=== PATIENT | male | born 1965 | race American Indian/Alaskan Native ===

== ENCOUNTER 2022-06-18 13:28 | Inpatient (IN) | payer MEDICAID ==
[2022-06-18] MEDS ORDERED: SODIUM CHLORIDE 0.9% 1000 ML 1,000 ML IV ONE (14:41)
[2022-06-18] MEDS ORDERED: METOCLOPRAMIDE 10 MG/2 ML INJ IV ONE (14:42)
[2022-06-18] MEDS ORDERED: fentaNYL 100 MCG/2 ML INJ IV ONE (15:35)
--- NOTE | 2022-06-18 15:35 | XRay Report ---
CHEST 1 VIEW 06/18/2022 3:15 PM INDICATION / CLINICAL INFORMATION: Altered Mental Status. COMPARISON: None available. FINDINGS: SUPPORT DEVICES: None. HEART / MEDIASTINUM: No significant abnormality. LUNGS / PLEURA: No significant pulmonary abnormality. No significant pleural effusion. No pneumothora x. ADDITIONAL FINDINGS: No significant additional findings. IMPRESSION: 1. No acute abnormality of the chest. Signer Name: Antonoi Harmon MD Signed: 06/18/2022 3:31 PM Workstation Name: [email or web address]
[2022-06-18 15:45] LABS: INR 0.97 (0.87-1.13)
[2022-06-18 15:51] LABS: Basophils % (Auto) 0.6 % (0.0-1.8); Eosinophils % (Auto) 0.3 % (0.0-4.3); Lymphocytes # (Auto) 1.1 K/mm3 (1.2-5.4); Lymphocytes % (Auto) 22.5 % (13.4-35.0); Mean Corpuscular HGB Conc 33 % (32-34); Mean Corpuscular Volume 98 fl (84-94); Monocytes # (Auto) 0.2 K/mm3 (0.0-0.8); Monocytes % (Auto) 3.6 % (0.0-7.3); Platelet Count 271 K/mm3 (140-440); Red Cell Distribution Width 15.3 % (13.2-15.2)
[2022-06-18 15:56] LABS: Alanine Aminotransferase 16 units/L (7-56); Albumin 4.2 g/dL (3.9-5); BUN/Creatinine Ratio 14; Blood Urea Nitrogen 22 mg/dL (9-20); Hemolysis Index 5
[2022-06-18] MEDS ORDERED: INSULIN REGULAR, HUMAN 100 UNITS in SODIUM CHLORIDE 0.9% 99 ML IV SCH ×2 (17:00→18:00)
[2022-06-18 17:07] LABS: Bacteria,Urine 1+ /HPF (Negative); Mucus,Urine FEW /HPF
[2022-06-18] MEDS ORDERED: ALBUTEROL 2.5 MG/3 ML NEBU IH PRN (17:08)
[2022-06-18] MEDS ORDERED: ACETAMINOPHEN 325 MG TAB PO PRN (17:08)
[2022-06-18] MEDS ORDERED: oxyCODONE /ACETAMINOPHEN 5-325MG TAB PO PRN (17:08)
[2022-06-18] MEDS ORDERED: SODIUM BICARB 8.4% 50 MEQ/50 ML SYRINGE IV SCH (17:11)
--- NOTE | 2022-06-18 17:11 | History and Physical Report ---
History of Present Illness Chief complaint: My blood sugar is high History of present illness: 57 YO Male with DM, HTN presents ED for evaluation. Patient reports "my blood sugar is high". Patient states that he has experienced nausea, abdominal discomfort, diminished oral intake over the past 1 day with persistent symptoms over the same timeframe. Patient checks his blood glucose and found that it was above 500. EMS was notified and upon arrival the patient was found to be in distress and subsequent transported to [facility] for further care and evaluation of the aforementioned symptoms. The patient was seen and evaluated in the emergency department. All lab and imaging studies reviewed. Patient found to have diabetic ketoacidosis, metabolic acidosis, acute kidney injury, volume depletion as well as malnutrition. Patient admitted to ICU due to increased risk of worsening symptoms and for medical stabilization. Patient initiated on DKA protocol. Critical care team consulted in ED. Patient denies fever, chills, chest pain, palpitation, productive cough, skin rash and recent contact, no exposure to COVID-19. No prior admission for review. No medication listed at time of admission for reconciliation. Advanced care planning conducted in ED. Past History Past Medical History: diabetes, hypertension Past Surgical History: No surgical history, Other (Reviewed) Social history: single. denies: smoking, alcohol abuse, prescription drug abuse Family history: diabetes, hypertension Medications and Allergies Allergies Allergy/AdvReac Type Severity Reaction Status Date / Time acetaminophen [From Tylenol] AdvReac Unknown Verified 06/18/22 13:33 Active Meds: Active Medications Insulin Human Regular 100 (units/ Sodium Chloride) 100 mls @ 1 mls/hr IV TITR LUKSA; Protocol Last Admin: 06/18/22 16:54 Dose: 8 units/hr, 8 mls/hr Sodium Chloride (Sodium Chloride 0.9% 10 Ml Flush Syringe) 10 ml IV BID LUKAS Sodium Chloride (Sodium Chloride 0.9% 10 Ml Flush Syringe) 10 ml IV PRN PRN PRN Reason: LINE FLUSH Review of Systems Constitutional: weakness, no weight loss, no weight gain, no fever, no chills Ears, nose, mouth and throat: no ear pain, no decreased hearing, no nose pain, no sinus pressure Cardiovascular: no chest pain, no palpitations, no edema, no syncope Respiratory: no cough, no excessive sputum, no shortness of breath Gastrointestinal: nausea, no diarrhea, no constipation, no change in bowel habits, no hematemesis Genitourinary Male: no hematuria, no flank pain, no urinary frequency, no urinary hesitancy, no nocturia Rectal: no pain, no bleeding Musculoskeletal: no neck stiffness, no shooting arm pain, no arm numbness/tingling, no shooting leg pain Integumentary: no rash, no sores, no boils, no blisters Neurological: no head injury, no weakness, no tingling, no seizures, no tremors Psychiatric: no anxiety, no sleep disturbances, no hypersomnia, no change in appetite, no suicidal ideation Endocrine: excessive thirst, polyuria, no cold intolerance, no heat intolerance, no nocturia, no excessive sweating, no flushing Hematologic/Lymphatic: no easy bruising Allergic/Immunologic: no urticaria, no allergic rhinitis, no wheezing Exam - Constitutional Vitals: Temp Pulse Resp BP Pulse Ox 97.6 F 108 H 14 105/55 98 06/18/22 13:31 06/18/22 17:01 06/18/22 17:01 06/18/22 17:01 06/18/22 17:01 General appearance: Present: mild distress - EENT Eyes: Present: PERRL ENT: hearing intact, clear oral mucosa - Neck Neck: Present: supple, normal ROM - Respiratory Respiratory effort: normal Respiratory: bilateral: CTA - Cardiovascular Heart Sounds: Present: S1 & S2. Absent: rub, click - Extremities Extremities: pulses symmetrical, No edema Peripheral Pulses: within normal limits - Abdominal General gastrointestinal: Present: soft, non-tender, non-distended, normal bowel sounds Male genitourinary: Present: normal - Integumentary Integumentary: Present: clear, warm, dry - Musculoskeletal Musculoskeletal: gait normal, strength equal bilaterally - Psychiatric Psychiatric: appropriate mood/affect, intact judgment & insight - Neurologic Neurologic: CNII-XII intact, moves all extremities HEART Score - HEART Score Troponin: Troponin T < 0.010 ng/mL (0.00-0.029) 06/18/22 14:59 Results - Labs CBC & Chem 7: 06/18/22 15:40 06/18/22 14:59 Labs: Abnormal lab results 06/18/22 06/18/22 06/18/22 Range/Units 14:59 14:59 14:59 MCV (84-94) fl RDW (13.2-15.2) % Lymph # (Auto) (1.2-5.4) K/mm3 Seg Neutrophils % (40.0-70.0) % Sodium 132 L (137-145) mmol/L Potassium 6.7 H* (3.6-5.0) mmol/L Chloride 92.0 L (98-107) mmol/L Carbon Dioxide 13 L (22-30) mmol/L BUN 22 H (9-20) mg/dL Creatinine 1.6 H (0.8-1.3) mg/dL Glucose 738 H* (75-100) mg/dL POC Glucose (70-105) mg/dL Lactic Acid 2.40 H* (0.7-2.0) mmol/L Alkaline Phosphatase 135 H (35-129) units/L Salicylates < 0.3 L (2.8-20.0) mg/dL Acetaminophen (10.0-30.0) ug/mL 06/18/22 06/18/22 06/18/22 Range/Units 14:59 15:26 15:40 MCV 98 H (84-94) fl RDW 15.3 H (13.2-15.2) % Lymph # (Auto) 1.1 L (1.2-5.4) K/mm3 Seg Neutrophils % 73.0 H (40.0-70.0) % Sodium (137-145) mmol/L Potassium (3.6-5.0) mmol/L Chloride (98-107) mmol/L Carbon Dioxide (22-30) mmol/L BUN (9-20) mg/dL Creatinine (0.8-1.3) mg/dL Glucose (75-100) mg/dL POC Glucose > 600 H (70-105) mg/dL Lactic Acid (0.7-2.0) mmol/L Alkaline Phosphatase (35-129) units/L Salicylates (2.8-20.0) mg/dL Acetaminophen 5.0 L (10.0-30.0) ug/mL Assessment and Plan - Patient Problems (1) DKA (diabetic ketoacidosis) Current Visit: No Status: Acute Qualifiers: Diabetes mellitus type: type 1 Plan to address problem: DKA protocol: Insulin drip, IV fluid resuscitation therapy, serial BMP, monitor anion gap, monitor urine output every shift, potassium repletion as per protocol The high probability of a clinically significant, sudden or life threatening deterioration of the [endocrine, renal] system(s) required my full and direct attention, intervention and personal management. The aggregate critical care time was [65] minutes. This time is in addition to time spent performing reported procedures but includes the following: [x] Data Review and interpretation [x] Patient assessment and monitoring of vital signs [x] Documentation [x] Medication orders and management (2) Acidosis, metabolic Current Visit: Yes Status: Acute Plan to address problem: IV fluid resuscitation therapy, BMP, repeat BMP in a.m., IV bicarbonate therapy (3) Volume depletion Current Visit: Yes Status: Acute Plan to address problem: IV fluid resuscitation therapy monitor urine output every shift, monitor fluid balance. (4) MARÍA (acute kidney injury) Current Visit: Yes Status: Acute Plan to address problem: IV fluid resuscitation therapy, monitor urine output every shift, repeat BMP in a.m. to monitor serum creatinine as well as GFR. (5) Malnutrition Current Visit: Yes Status: Acute Qualifiers: Protein-calorie malnutrition severity: mild Plan to address problem: Increase protein intake, dietary supplementation (6) DVT prophylaxis Current Visit: Yes Status: Acute Plan to address problem: SCD to bilateral lower extremities while in bed (7) Advance care planning Current Visit: Yes Status: Acute Plan to address problem: Disease education done, care plan discussed, diagnoses discussed, prognosis discussed, patient acknowledges understanding and agreement with care plan, +30 minutes. (8) Preventative health care Current Visit: Yes Status: Acute Plan to address problem: Patient counseled regarding carbohydrate counting, balanced diet, outpatient follow-up with primary care physician for all age and risk factor appropriate screening test. +30 minutes.
--- NOTE | 2022-06-18 17:12 | Emergency Department Report ---
ED General Adult HPI - General Chief complaint: Hyperglycemia Stated complaint: ABD PAIN/HYPERGLYCEMIA PUI?: No Time Seen by Provider: 06/18/22 14:38 Source: patient Mode of arrival: Stretcher Limitations: No Limitations - History of Present Illness Initial comments: PT ARRIVING FROM HOME, REPORTS ABD PAIN. DENIES NVD. BGL 572 -: Gradual, days(s) Location: abdomen Severity scale (0 -10): 8 Quality: aching Consistency: intermittent Improves with: none Worsens with: none Associated Symptoms: denies: denies other symptoms, confusion, chest pain, cough - Related Data Allergies Allergy/AdvReac Type Severity Reaction Status Date / Time acetaminophen [From Tylenol] AdvReac Unknown Verified 06/18/22 13:33 ED Review of Systems ROS: Stated complaint: ABD PAIN/HYPERGLYCEMIA Other details as noted in HPI Constitutional: denies: chills, fever Eyes: denies: eye pain, eye discharge, vision change ENT: denies: ear pain, throat pain Respiratory: denies: cough, shortness of breath, wheezing Cardiovascular: denies: chest pain, palpitations Endocrine: no symptoms reported Gastrointestinal: denies: abdominal pain, nausea, diarrhea Genitourinary: denies: urgency, dysuria Musculoskeletal: denies: back pain, joint swelling, arthralgia Skin: denies: rash, lesions Neurological: denies: headache, weakness, paresthesias Psychiatric: denies: anxiety, depression Hematological/Lymphatic: denies: easy bleeding, easy bruising ED Past Medical Hx - Past Medical History Hx Hypertension: Yes Hx Diabetes: Yes ED Physical Exam - General Limitations: No Limitations General appearance: alert, in distress - Head Head exam: Present: atraumatic, normocephalic - Eye Eye exam: Present: normal appearance - ENT ENT exam: Present: mucous membranes moist - Neck Neck exam: Present: normal inspection - Respiratory Respiratory exam: Present: normal lung sounds bilaterally. Absent: respiratory distress - Cardiovascular Cardiovascular Exam: Present: regular rate, normal rhythm. Absent: systolic murmur, diastolic murmur, rubs, gallop - GI/Abdominal GI/Abdominal exam: Present: tenderness, normal bowel sounds - Rectal Rectal exam: Present: deferred - Extremities Exam Extremities exam: Present: normal inspection - Back Exam Back exam: Present: normal inspection - Neurological Exam Neurological exam: Present: alert, oriented X3 - Psychiatric Psychiatric exam: Present: normal affect, normal mood - Skin Skin exam: Present: warm, dry, intact, normal color. Absent: rash ED Course Vital Signs 06/18/22 06/18/22 06/18/22 13:31 15:43 15:45 Temperature 97.6 F Pulse Rate 70 85 104 H Respiratory 16 18 11 L Rate Blood Pressure 139/76 Blood Pressure 134/83 134/62 [Left] O2 Sat by Pulse 98 99 100 Oximetry 06/18/22 06/18/22 06/18/22 16:01 16:15 16:31 Temperature Pulse Rate 106 H 106 H 113 H Respiratory 10 L 15 18 Rate Blood Pressure 119/78 112/58 105/55 Blood Pressure [Left] O2 Sat by Pulse 99 100 100 Oximetry 06/18/22 17:01 Temperature Pulse Rate 108 H Respiratory 14 Rate Blood Pressure 105/55 Blood Pressure [Left] O2 Sat by Pulse 98 Oximetry ED Medical Decision Making - Lab Data Result diagrams: 06/18/22 15:40 06/18/22 14:59 - EKG Data -: EKG Interpreted by Me EKG shows normal: sinus rhythm - Medical Decision Making work up showed hyperglycemia ktosis and acodisos and gap, fluids insulin bolus and drip Critical care attestation.: If time is entered above; I have spent that time in minutes in the direct care of this critically ill patient, excluding procedure time. ED Disposition Clinical Impression: DKA (diabetic ketoacidosis) Disposition: ADMITTED INPATIENT Is pt being admited?: Yes Does the pt Need Aspirin: No Condition: Critical Instructions: Diabetic Ketoacidosis (ED)
[2022-06-18] MEDS ORDERED: SODIUM CHLORIDE 0.9% 1000 ML 1,000 ML IV SCH (17:15)
[2022-06-18 17:18] LABS: Amphetamine Screen,Urine PRESUMPTIVE NEGATIVE; Benzodiazepines Screen,Urine PRESUMPTIVE NEGATIVE; Cannabinoid Screen,Urine PRESUMPTIVE NEGATIVE; Cocaine Screen,Urine PRESUMPTIVE NEGATIVE; Methadone Screen,Urine PRESUMPTIVE NEGATIVE; Opiate Screen,Urine PRESUMPTIVE NEGATIVE
[2022-06-18 17:22] LABS: Bilirubin,Urine Negative (Negative); Blood,Urine Negative (Negative); Color,Urine Yellow (Yellow); Protein,Urine <15 mg/dL mg/dL (Negative)
[2022-06-18 17:42] LABS: ABG Base Excess -17.2 mmol/L (-2.0-3.0); ABG HCO3 9.4 mmol/L (20.0-26.0); ABG Methemoglobin 0.6 % (0.0-1.5); ABG Oxygen Saturation 98.1 % (95.0-99.0); ABG PCO2 25.3 mm Hg; ABG PO2 125.4 mm Hg (80.0-90.0)
[2022-06-18 17:57] LABS: ABG PH 7.189 pH Units (7.350-7.450)
[2022-06-18 18:49] LABS: Calcium 8.7 mg/dL (8.4-10.2)
[2022-06-18] MEDS: HYDROmorphone 0.5 MG/0.5 ML INJ IV PRN (20:33)
[2022-06-18] MEDS ORDERED: SODIUM CHLORIDE 0.9% 500 ML 500 ML IV ONE (21:09)
[2022-06-18] MEDS ORDERED: SODIUM CHLORIDE 0.9% 500 ML 500 ML ONE (21:10)
[2022-06-18] MEDS ORDERED: D5W/0.45% NACL 1,000 ML IV SCH (22:00)
[2022-06-18 23:17] LABS: Calcium 9.5 mg/dL (8.4-10.2)
[2022-06-18] MEDS: D5W/0.45% NACL/KCL 20 MEQ 20 MEQ/1,000 ML BAG IV SCH (23:46)
[2022-06-19] MEDS: HYDROmorphone 0.5 MG/0.5 ML INJ IV PRN ×3 (00:07→21:41)
[2022-06-19 01:27] LABS: Calcium 9.2 mg/dL (8.4-10.2)
[2022-06-19 05:24] LABS: BUN/Creatinine Ratio 14; Blood Urea Nitrogen 20 mg/dL (9-20); Calcium 8.9 mg/dL (8.4-10.2); Hemolysis Index 12
[2022-06-19] MEDS ORDERED: IBUPROFEN 400 MG TAB PO ONE (06:00)
[2022-06-19] MEDS: D5W/0.45% NACL/KCL 20 MEQ 20 MEQ/1,000 ML BAG IV SCH (07:47)
[2022-06-19 09:55] LABS: BUN/Creatinine Ratio 13; Blood Urea Nitrogen 17 mg/dL (9-20); Calcium 8.8 mg/dL (8.4-10.2); Hemolysis Index 5
[2022-06-19] MEDS ORDERED: FAMOTIDINE 20 MG/2 ML INJ IV SCH (10:00)
--- NOTE | 2022-06-19 10:21 | Progress Note ---
<ARVIND BRAUN - Last Filed: 06/19/22 17:47> Assessment and Plan Assessment and plan: This is a 57-year-old male with known past medical history of HTN, IDDM, and hypothyroidism admitted for DKA Hospital Course to Date: 06/19: Patient remains on DKA protocol, anion gap closed this am. Patient still complaining of severe persistent abdominal pain. Per patient, patient has been constant since admit with no improvement. Orders placed for CT abd/pelvis. Depends on CT result will most likely transition to SubQ insulin today. Continue IVF resuscitation and insulin gtt per DKA protocol. CCM is also following. Assessment and Plan #DKA (Diabetic Ketoacidosis) #Anion Gap Metabolic Acidosis #Insulin Dependent Diabetes Mellitus(IDDM) - Presented with high BG, nausea, and abdominal pain - DKA protocol was initiated - HgbA1C pending - Anion gap closed and BG improved - Awaiting CT result, will probably transition to SubQ insulin later on today - Monitor and replace electrolytes as needed - Monitor anion gap, serial Labs ordered - CCM consulted #Persistent Abdominal Pain - Unclear etiology - Per patient, abdominal pain is unchanged since admit - Patient remains on DKA protocol, Anion gap closed and BG improved - Patient describe pain as persistent, cramp-like, diffuse pain. Abdomen is soft but tender to touch. Patient denied any N/V, no diarrhea or bloating. - CT abd/pelvis ordered - PRN Analgesia for pain control - PRN antiemetic for N/V - Continue current IVF resuscitation #Acute Kidney Injury(MARÍA) most like Vasomotor Nephropathy #Volume Depletion #Metabolic Acidosis - Baseline renal function is unknown - Presented with Scr. as high as 1.8, most likely 2/2 to DKA/hypovolemia/Dehyd ration - Renal function improved post IVF hydration - Continue IV fluid resuscitation per DKA protocol - Strict intake and output - Avoid nephrotoxic medications - Monitor and replace electrolytes as needed - Trend BMP and Lactic acid #Hypertension - BP stable - Resume home meds once meds list is available - Continue blood pressure monitor per protocol - Maintain SBP greater than 160 #Hypothyroidism - resume home Synthroid #GI/DVT Prophylaxis - PPI- Pepcid - SCD to bilateral lower extremities while in bed #Advance Care Planning - Disease education data, care plan, diagnoses, and prognosis were discussed with patient at the bedside. Patient is a FULL code. Patient acknowledged understanding and agreement with current care plan. The high probability of a clinically significant, sudden or life threatening deterioration of the [GI, Endo, ] system(s) required my full and direct attention, intervention and personal management. The aggregate critical care time was [60] minutes. This time is in addition to time spent performing reported procedures but includes the following: [x] Data Review and interpretation [x] Patient assessment and monitoring of vital signs [x] Documentation [x] Medication orders and management Disposition Plan: ICU Total Time Spent with Patient (Minutes): 60 History Interval history: Patient seen and examined at the bedside. Fully AAO, on RA. Complaining of severe persistent abdominal pain. Patient describe pain as persistent, cramp- like, diffuse pain. Abdomen is soft but tender to touch. Patient denied any N/V, no diarrhea or bloating. Patient remains on the DKA protocol, VSS. Hospitalist Physical - Constitutional Vitals: Temp Pulse Resp BP Pulse Ox 98 F 82 9 L 132/78 98 06/19/22 10:00 06/19/22 10:01 06/19/22 10:01 06/19/22 10:01 06/19/22 10:01 General appearance: Present: mild distress, well-nourished - EENT Eyes: Present: PERRL, EOM intact ENT: hearing intact - Neck Neck: Present: normal ROM - Respiratory Respiratory effort: normal Respiratory: bilateral: diminished - Cardiovascular Rhythm: regular Heart Sounds: Present: S1 & S2 - Extremities Extremities: no ischemia, pulses intact, pulses symmetrical Peripheral Pulses: within normal limits - Abdominal General gastrointestinal: soft, tender, non-distended, normal bowel sounds - Integumentary Integumentary: Present: clear, warm, dry - Psychiatric Psychiatric: appropriate mood/affect, cooperative - Neurologic Neurologic: CNII-XII intact, moves all extremities - Allied Health Allied health notes reviewed: nursing HEART Score - HEART Score Troponin: Troponin T < 0.010 ng/mL (0.00-0.029) 06/18/22 14:59 Results - Labs CBC & Chem 7: 06/18/22 15:40 06/19/22 09:21 Labs: Laboratory Last Values WBC 4.8 K/mm3 (4.5-11.0) 06/18/22 15:40 RBC 4.10 M/mm3 (3.65-5.03) 06/18/22 15:40 Hgb 13.0 gm/dl (11.8-15.2) 06/18/22 15:40 Hct 40.0 % (35.5-45.6) 06/18/22 15:40 MCV 98 fl (84-94) H 06/18/22 15:40 MCH 32 pg (28-32) 06/18/22 15:40 MCHC 33 % (32-34) 06/18/22 15:40 RDW 15.3 % (13.2-15.2) H 06/18/22 15:40 Plt Count 271 K/mm3 (140-440) 06/18/22 15:40 Lymph % (Auto) 22.5 % (13.4-35.0) 06/18/22 15:40 [place] % (Auto) 3.6 % (0.0-7.3) 06/18/22 15:40 Eos % (Auto) 0.3 % (0.0-4.3) 06/18/22 15:40 Baso % (Auto) 0.6 % (0.0-1.8) 06/18/22 15:40 Lymph # (Auto) 1.1 K/mm3 (1.2-5.4) L 06/18/22 15:40 [place] # (Auto) 0.2 K/mm3 (0.0-0.8) 06/18/22 15:40 Eos # (Auto) 0.0 K/mm3 (0.0-0.4) 06/18/22 15:40 Baso # (Auto) 0.0 K/mm3 (0.0-0.1) 06/18/22 15:40 Seg Neutrophils % 73.0 % (40.0-70.0) H 06/18/22 15:40 Seg Neutrophils # 3.5 K/mm3 (1.8-7.7) 06/18/22 15:40 PT 13.9 Sec. (12.2-14.9) 06/18/22 14:59 INR 0.97 (0.87-1.13) 06/18/22 14:59 ABG pH 7.189 pH Units (7.350-7.450) L* 06/18/22 16:47 ABG pCO2 25.3 mm Hg 06/18/22 16:47 ABG pO2 125.4 mm Hg (80.0-90.0) H 06/18/22 16:47 ABG HCO3 9.4 mmol/L (20.0-26.0) L 06/18/22 16:47 ABG O2 Saturation 98.1 % (95.0-99.0) 06/18/22 16:47 ABG O2 Content 16.6 (0.0-44) 06/18/22 16:47 ABG Base Excess -17.2 mmol/L (-2.0-3.0) L 06/18/22 16:47 ABG Hemoglobin 12.1 gm/dl (14.0-18.0) L 06/18/22 16:47 ABG Carboxyhemoglobin 1.5 % (0.0-5.0) 06/18/22 16:47 ABG Methemoglobin 0.6 % (0.0-1.5) 06/18/22 16:47 Oxyhemoglobin 96.1 % (95.0-99.0) 06/18/22 16:47 FiO2 21 % 06/18/22 16:47 Sodium 146 mmol/L (137-145) H 06/19/22 09:21 Potassium 4.2 mmol/L (3.6-5.0) 06/19/22 09:21 Chloride 111.0 mmol/L (98-107) H 06/19/22 09:21 Carbon Dioxide 22 mmol/L (22-30) 06/19/22 09:21 Anion Gap 17 mmol/L 06/19/22 09:21 BUN 17 mg/dL (9-20) 06/19/22 09:21 Creatinine 1.3 mg/dL (0.8-1.3) 06/19/22 09:21 Estimated GFR > 60 ml/min 06/19/22 09:21 BUN/Creatinine Ratio 13 % 06/19/22 09:21 Glucose 132 mg/dL (75-100) H 06/19/22 09:21 POC Glucose 121 mg/dL (70-105) H 06/19/22 09:35 Ketones Quantitative Large (Negative) 06/18/22 14:59 Lactic Acid 3.20 mmol/L (0.7-2.0) H* 06/19/22 09:21 Calcium 8.8 mg/dL (8.4-10.2) 06/19/22 09:21 Phosphorus 2.70 mg/dL (2.5-4.5) D 06/19/22 09:21 Magnesium 2.30 mg/dL (1.7-2.3) 06/19/22 09:21 Total Bilirubin 0.50 mg/dL (0.1-1.2) 06/18/22 14:59 AST 24 units/L (5-40) 06/18/22 14:59 ALT 16 units/L (7-56) 06/18/22 14:59 Alkaline Phosphatase 135 units/L (35-129) H 06/18/22 14:59 Total Creatine Kinase 93 units/L (55-170) 06/18/22 14:59 Total Creatine Kinase 98 units/L (55-170) 06/18/22 14:59 Troponin T < 0.010 ng/mL (0.00-0.029) 06/18/22 14:59 C-Reactive Protein 0.30 mg/dL (0.00-1.30) 06/18/22 14:59 NT-Pro-B Natriuret Pep 304.5 pg/mL (0-900) 06/18/22 14:59 Total Protein 6.9 g/dL (6.3-8.2) 06/18/22 14:59 Albumin 4.2 g/dL (3.9-5) 06/18/22 14:59 Albumin/Globulin Ratio 1.6 % 06/18/22 14:59 Urine Color Yellow (Yellow) 06/18/22 15:43 Urine Turbidity Clear (Clear) 06/18/22 15:43 Urine pH 5.0 (5.0-7.0) 06/18/22 15:43 Ur Specific [place] 1.010 (1.003-1.030) 06/18/22 15:43 Urine Protein <15 mg/dl mg/dL (Negative) 06/18/22 15:43 Urine Glucose (UA) Negative mg/dL (Negative) 06/18/22 15:43 Urine Ketones 1 mg/dL (Negative) 06/18/22 15:43 Urine Blood Negative (Negative) 06/18/22 15:43 Urine Nitrite Negative (Negative) 06/18/22 15:43 Ur Reducing Substances Not Reportable 06/18/22 15:43 Urine Bilirubin Negative (Negative) 06/18/22 15:43 Urine Ictotest Not Reportable 06/18/22 15:43 Urine Urobilinogen 2.0 mg/dL (<2.0) 06/18/22 15:43 Ur Leukocyte Esterase 1.0 (Negative) 06/18/22 15:43 Urine WBC (Auto) 48.0 /HPF (0.0-6.0) H 06/18/22 15:43 Urine RBC (Auto) 14.0 /HPF (0.0-6.0) 06/18/22 15:43 U Epithel Cells (Auto) 6.0 /HPF (0-13.0) 06/18/22 15:43 Urine Bacteria (Auto) 1+ /HPF (Negative) 06/18/22 15:43 Urine Mucus Few /HPF 06/18/22 15:43 Urine Yeast (Budding) 2+ /HPF 06/18/22 15:43 Salicylates < 0.3 mg/dL (2.8-20.0) L 06/18/22 14:59 Urine Opiates Screen Presumptive negative 06/18/22 15:43 Urine Methadone Screen Presumptive negative 06/18/22 15:43 Acetaminophen 5.0 ug/mL (10.0-30.0) L 06/18/22 14:59 Ur Barbiturates Screen Presumptive negative 06/18/22 15:43 Ur Phencyclidine Scrn Presumptive negative 06/18/22 15:43 Ur Amphetamines Screen Presumptive negative 06/18/22 15:43 U Benzodiazepines Scrn Presumptive negative 06/18/22 15:43 Urine Cocaine Screen Presumptive negative 06/18/22 15:43 U Marijuana (THC) Screen Presumptive negative 06/18/22 15:43 Drugs of Abuse Note Disclamer 06/18/22 15:43 Plasma/Serum Alcohol < 0.01 % (0-0.07) 06/18/22 14:59 Hou/IV: Voiding Method Urinal Active Medications - Current Medications Current Medications: Generic Name Dose Route Start Last Admin Trade Name Freq PRN Reason Stop Dose Admin Albuterol 2.5 mg 06/18/22 17:08 Albuterol 2.5 Mg/3 Ml Nebu IH Q3HRT PRN Shortness Of Breath Famotidine 20 mg 06/19/22 10:00 Famotidine 20 Mg/2 Ml Inj IV 06/19/22 20:00 QDAY LUKAS Famotidine 20 mg 06/20/22 10:00 Famotidine 20 Mg Tab PO QDAY LUKAS Hydromorphone HCl 0.5 mg 06/18/22 17:08 06/19/22 00:07 Hydromorphone 0.5 Mg/0.5 Ml Inj IV 0.5 mg Q13H PRN Administration Pain , Severe (7-10) Insulin Human Regular 100 100 mls @ 1 mls/hr 06/18/22 17:00 06/19/22 09:25 units/ Sodium Chloride IV 0.5 units/hr TITR LUKAS 0.5 mls/hr Titration Protocol 1 UNITS/HR Potassium Chloride/Dextrose/Sod Cl 20 meq in 1,000 mls @ 125 mls/hr 06/19/22 00:00 06/19/22 06:58 D5w/0.45% Nacl/Kcl 20 Meq IV 125 mls/hr DIRECT LUKAS Infusion Lactated Ringer's 1,000 mls @ 999 mls/hr 06/19/22 11:00 Lactated Ringers IV 06/19/22 12:00 BOLUS ONE Sodium Chloride 10 ml 06/18/22 22:00 06/18/22 23:52 Sodium Chloride 0.9% 10 Ml Flush Syringe IV 10 ml BID LUKAS Administration Sodium Chloride 10 ml 06/18/22 17:08 Sodium Chloride 0.9% 10 Ml Flush Syringe IV PRN PRN LINE FLUSH <URIEL BRANDON - Last Filed: 06/20/22 07:13> Assessment and Plan Assessment and plan: I saw and evaluated the patient. I agree with the findings and the plan of care as documented in the Nurse Practitioner's~note, with the following corrections and additions. Hospitalist Physical - Constitutional Vitals: Temp Pulse Resp BP Pulse Ox 97.7 F 97 H 11 L 114/85 100 06/20/22 07:07 06/20/22 00:41 06/20/22 00:41 06/20/22 00:41 06/20/22 00:41 HEART Score - HEART Score Troponin: Troponin T < 0.010 ng/mL (0.00-0.029) 06/18/22 14:59 Results - Labs CBC & Chem 7: 06/20/22 04:06 06/20/22 04:06 Labs: Laboratory Last Values WBC 3.9 K/mm3 (4.5-11.0) L 06/20/22 04:06 RBC 3.42 M/mm3 (3.65-5.03) L 06/20/22 04:06 Hgb 10.8 gm/dl (11.8-15.2) L 06/20/22 04:06 Hct 32.1 % (35.5-45.6) L D 06/20/22 04:06 MCV 94 fl (84-94) 06/20/22 04:06 MCH 32 pg (28-32) 06/20/22 04:06 MCHC 34 % (32-34) 06/20/22 04:06 RDW 15.5 % (13.2-15.2) H 06/20/22 04:06 Plt Count 223 K/mm3 (140-440) 06/20/22 04:06 Lymph % (Auto) 22.5 % (13.4-35.0) 06/18/22 15:40 [place] % (Auto) 3.6 % (0.0-7.3) 06/18/22 15:40 Eos % (Auto) 0.3 % (0.0-4.3) 06/18/22 15:40 Baso % (Auto) 0.6 % (0.0-1.8) 06/18/22 15:40 Lymph # (Auto) 1.1 K/mm3 (1.2-5.4) L 06/18/22 15:40 [place] # (Auto) 0.2 K/mm3 (0.0-0.8) 06/18/22 15:40 Eos # (Auto) 0.0 K/mm3 (0.0-0.4) 06/18/22 15:40 Baso # (Auto) 0.0 K/mm3 (0.0-0.1) 06/18/22 15:40 Seg Neutrophils % 73.0 % (40.0-70.0) H 06/18/22 15:40 Seg Neutrophils # 3.5 K/mm3 (1.8-7.7) 06/18/22 15:40 PT 13.9 Sec. (12.2-14.9) 06/18/22 14:59 INR 0.97 (0.87-1.13) 06/18/22 14:59 ABG pH 7.189 pH Units (7.350-7.450) L* 06/18/22 16:47 ABG pCO2 25.3 mm Hg 06/18/22 16:47 ABG pO2 125.4 mm Hg (80.0-90.0) H 06/18/22 16:47 ABG HCO3 9.4 mmol/L (20.0-26.0) L 06/18/22 16:47 ABG O2 Saturation 98.1 % (95.0-99.0) 06/18/22 16:47 ABG O2 Content 16.6 (0.0-44) 06/18/22 16:47 ABG Base Excess -17.2 mmol/L (-2.0-3.0) L 06/18/22 16:47 ABG Hemoglobin 12.1 gm/dl (14.0-18.0) L 06/18/22 16:47 ABG Carboxyhemoglobin 1.5 % (0.0-5.0) 06/18/22 16:47 ABG Methemoglobin 0.6 % (0.0-1.5) 06/18/22 16:47 Oxyhemoglobin 96.1 % (95.0-99.0) 06/18/22 16:47 FiO2 21 % 06/18/22 16:47 Sodium 145 mmol/L (137-145) 06/20/22 04:06 Potassium 3.8 mmol/L (3.6-5.0) 06/20/22 04:06 Chloride 110.3 mmol/L (98-107) H 06/20/22 04:06 Carbon Dioxide 25 mmol/L (22-30) 06/20/22 04:06 Anion Gap 14 mmol/L 06/20/22 04:06 BUN 8 mg/dL (9-20) L 06/20/22 04:06 Creatinine 1.1 mg/dL (0.8-1.3) 06/20/22 04:06 Estimated GFR > 60 ml/min 06/20/22 04:06 BUN/Creatinine Ratio 7 % 06/20/22 04:06 Glucose 91 mg/dL (75-100) 06/20/22 04:06 POC Glucose 107 mg/dL (70-105) H 06/19/22 21:43 Hemoglobin A1c 10.7 % (4-6) H 06/20/22 04:06 Ketones Quantitative Large (Negative) 06/18/22 14:59 Lactic Acid 1.40 mmol/L (0.7-2.0) 06/19/22 15:47 Calcium 8.6 mg/dL (8.4-10.2) 06/20/22 04:06 Phosphorus 2.80 mg/dL (2.5-4.5) 06/20/22 04:06 Magnesium 1.90 mg/dL (1.7-2.3) 06/20/22 04:06 Total Bilirubin 0.40 mg/dL (0.1-1.2) 06/20/22 04:06 Direct Bilirubin < 0.2 mg/dL (0-0.2) 06/20/22 04:06 AST 24 units/L (5-40) 06/20/22 04:06 ALT 15 units/L (7-56) 06/20/22 04:06 Alkaline Phosphatase 100 units/L (35-129) 06/20/22 04:06 Total Creatine Kinase 93 units/L (55-170) 06/18/22 14:59 Total Creatine Kinase 98 units/L (55-170) 06/18/22 14:59 Troponin T < 0.010 ng/mL (0.00-0.029) 06/18/22 14:59 C-Reactive Protein 0.30 mg/dL (0.00-1.30) 06/18/22 14:59 NT-Pro-B Natriuret Pep 304.5 pg/mL (0-900) 06/18/22 14:59 Total Protein 5.7 g/dL (6.3-8.2) L 06/20/22 04:06 Albumin 3.4 g/dL (3.9-5) L 06/20/22 04:06 Albumin/Globulin Ratio 1.5 % 06/20/22 04:06 Triglycerides 192 mg/dL (2-149) H 06/20/22 04:06 Amylase 180 units/L (27-131) H 06/20/22 04:06 Lipase 249 units/L (13-60) H 06/20/22 04:06 Urine Color Yellow (Yellow) 06/18/22 15:43 Urine Turbidity Clear (Clear) 06/18/22 15:43 Urine pH 5.0 (5.0-7.0) 06/18/22 15:43 Ur Specific [place] 1.010 (1.003-1.030) 06/18/22 15:43 Urine Protein <15 mg/dl mg/dL (Negative) 06/18/22 15:43 Urine Glucose (UA) Negative mg/dL (Negative) 06/18/22 15:43 Urine Ketones 1 mg/dL (Negative) 06/18/22 15:43 Urine Blood Negative (Negative) 06/18/22 15:43 Urine Nitrite Negative (Negative) 06/18/22 15:43 Ur Reducing Substances Not Reportable 06/18/22 15:43 Urine Bilirubin Negative (Negative) 06/18/22 15:43 Urine Ictotest Not Reportable 06/18/22 15:43 Urine Urobilinogen 2.0 mg/dL (<2.0) 06/18/22 15:43 Ur Leukocyte Esterase 1.0 (Negative) 06/18/22 15:43 Urine WBC (Auto) 48.0 /HPF (0.0-6.0) H 06/18/22 15:43 Urine RBC (Auto) 14.0 /HPF (0.0-6.0) 06/18/22 15:43 U Epithel Cells (Auto) 6.0 /HPF (0-13.0) 06/18/22 15:43 Urine Bacteria (Auto) 1+ /HPF (Negative) 06/18/22 15:43 Urine Mucus Few /HPF 06/18/22 15:43 Urine Yeast (Budding) 2+ /HPF 06/18/22 15:43 Salicylates < 0.3 mg/dL (2.8-20.0) L 06/18/22 14:59 Urine Opiates Screen Presumptive negative 06/18/22 15:43 Urine Methadone Screen Presumptive negative 06/18/22 15:43 Acetaminophen 5.0 ug/mL (10.0-30.0) L 06/18/22 14:59 Ur Barbiturates Screen Presumptive negative 06/18/22 15:43 Ur Phencyclidine Scrn Presumptive negative 06/18/22 15:43 Ur Amphetamines Screen Presumptive negative 06/18/22 15:43 U Benzodiazepines Scrn Presumptive negative 06/18/22 15:43 Urine Cocaine Screen Presumptive negative 06/18/22 15:43 U Marijuana (THC) Screen Presumptive negative 06/18/22 15:43 Drugs of Abuse Note Disclamer 06/18/22 15:43 Plasma/Serum Alcohol < 0.01 % (0-0.07) 06/18/22 14:59 Hou/IV: Voiding Method Urinal Active Medications - Current Medications Current Medications: Generic Name Dose Route Start Last Admin Trade Name Freq PRN Reason Stop Dose Admin Albuterol 2.5 mg 06/18/22 17:08 Albuterol 2.5 Mg/3 Ml Nebu IH Q3HRT PRN Shortness Of Breath Amitriptyline HCl 75 mg 06/20/22 10:00 Amitriptyline 25 Mg Tab PO QDAY LUKAS Aspirin 325 mg 06/20/22 10:00 Aspirin 325 Mg Tab PO QDAY LUKAS Dextrose 50 ml 06/19/22 14:58 Dextrose 50% In Water (25gm) 50 Ml Syringe IV Q30MIN PRN Hypoglycemia Protocol Famotidine 20 mg 06/20/22 10:00 Famotidine 20 Mg Tab PO QDAY LUKAS Hydromorphone HCl 0.5 mg 06/19/22 17:09 06/20/22 04:24 Hydromorphone 0.5 Mg/0.5 Ml Inj IV 0.5 mg Q4HR PRN Administration Pain , Severe (7-10) Lactated Ringer's 1,000 mls @ 100 mls/hr 06/19/22 15:00 06/20/22 01:48 Lactated Ringers IV 100 mls/hr DIRECT LUKAS Administration Insulin Human Regular 0 units 06/19/22 16:30 06/19/22 16:50 Insulin Regular, Human 100 Units/1 Ml SUB-Q 2 units ACHS LUKAS Administration Protocol Levothyroxine Sodium 40 mcg 06/20/22 06:00 Levothyroxine 50 Mcg Tab PO DAILY@0600 LUKAS Lisinopril 5 mg 06/20/22 10:00 Lisinopril 5 Mg Tab PO QDAY LUKAS Ondansetron HCl 4 mg 06/19/22 14:59 Ondansetron 4 Mg/2 Ml Inj IV Q6H PRN Nausea And Vomiting Quetiapine Fumarate 50 mg 06/19/22 22:00 06/19/22 21:41 Quetiapine 25 Mg Tab PO 50 mg QHS LUKAS Administration Sodium Chloride 10 ml 06/18/22 22:00 06/19/22 10:44 Sodium Chloride 0.9% 10 Ml Flush Syringe IV 10 ml BID LUKAS Administration Sodium Chloride 10 ml 06/18/22 17:08 Sodium Chloride 0.9% 10 Ml Flush Syringe IV PRN PRN LINE FLUSH Nutrition/Malnutrition Assess - Dietary Evaluation Nutrition/Malnutrition Findings: Nutrition Notes Start: 06/19/22 15:06 Freq: Status: Active Protocol: Document 06/19/22 15:06 LILIBETH (Rec: 06/19/22 15:24 LILIBETH [id number]) Nutrition Notes Need for Assessment generated from: charge hand,MST Initial or Follow up Assessment Current Diagnosis Acute Kidney Injury,Diabetes, Hypertension,Malnutrition Other Pertinent Diagnosis DKA, Metabolic Acidosis, Dehydration. Current Diet Clear Liquids Diet (from D ). Labs/Tests 06/19: Na 146, Cl 111.0, Glu 132. Pertinent Medications 06/19: Nutritionally unremarkable. 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 Weight Status Appropriate Subjective/Other Information RD consult for risk of malnutrition assessment. Pt will have the first meald at [employer] tonight, currently still on NPO., will assess at F/U. Pt is on Room Air, O2 saturation @ 100%, according to Physical Assessment History notes. Pt complains of nausea and abdominal pain, according to Physical Assessment History notes. Pt shows no signs of concern for risk of malnutrition at the time, according to Physical Assessment History notes. Percent of energy/protein needs met: Prescribed Clear Liquids Diet provides for energy/protein needs (590 Kcal/16 g) during LOS Burn Absent Trauma Absent GI Symptoms Nausea Food Allergy No Skin Integrity/Comment Assessment WNL. 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 Is patient on ventilator? No Is Patient Ambulatory and/or Out of Bed Yes REE-([facility]-ambulatory/OOB) [ [id number]] Calculation Used for Recommendations [facility] Additional Notes Protein: 0.8-1.2 g/Kg ABW; 52- 78 g/day. Fluids: 1 ml/Kcal, or as per MD. Nutrition Intervention Change Diet Order: Advance to Clear Liquids Diet, eventually, advance to Full Liquids Diet as tolerated. Follow-Up By: 06/26/22 Additional Comments Start monitoring food tolerance, %PO intake of meals , and BM.
[2022-06-19] MEDS ORDERED: LACTATED RINGERS 1,000 ML IV ONE (11:00)
--- NOTE | 2022-06-19 11:17 | Consultation ---
History of Present Illness Consult date: 06/19/22 Requesting physician: BENITO MCNEILL Reason for consult: other (DKA) History of present illness: This is a 57-year-old male with known past medical history of HTN, IDDM, and hypothyroidism admitted for DKA on an insulin infusion admitted to the ICU He has ongoing complains of upper abdominal pain associated with nausea. Remains on an insulin infusion ROS: Stated complaint: ABD PAIN/HYPERGLYCEMIA Other details as noted in HPI Constitutional: denies: chills, fever Eyes: denies: eye pain, eye discharge, vision change ENT: denies: ear pain, throat pain Respiratory: denies: cough, shortness of breath, wheezing Cardiovascular: denies: chest pain, palpitations Endocrine: no symptoms reported Gastrointestinal: denies: abdominal pain, nausea, diarrhea Genitourinary: denies: urgency, dysuria Musculoskeletal: denies: back pain, joint swelling, arthralgia Skin: denies: rash, lesions Neurological: denies: headache, weakness, paresthesias Psychiatric: denies: anxiety, depression Hematological/Lymphatic: denies: easy bleeding, easy bruising Past History Past Medical History: diabetes, hypertension Past Surgical History: No surgical history, Other (Reviewed) Social history: single. denies: smoking, alcohol abuse, prescription drug abuse Family history: diabetes, hypertension Medications and Allergies Allergies Allergy/AdvReac Type Severity Reaction Status Date / Time corn Allergy Angioedema Verified 06/21/22 08:26 acetaminophen [From Tylenol] AdvReac Unknown Verified 06/18/22 13:33 Home Medications Medication Instructions Recorded Confirmed Last Taken Type Amitriptyline [Elavil] 75 mg PO QDAY 06/19/22 06/19/22 Unknown History Aspirin 325 mg PO QDAY 06/19/22 06/19/22 Unknown History Levothyroxine [Synthroid] 40 mcg PO QAM 06/19/22 06/19/22 Unknown History Lisinopril [Zestril] 5 mg PO QDAY 06/19/22 06/19/22 Unknown History Quetiapine Fumarate [SEROquel] 50 mg PO QHS 06/19/22 06/19/22 Unknown History Ciprofloxacin HCl 500 mg PO BID #6 tab 06/21/22 Unknown Rx Famotidine [Pepcid] 20 mg PO QDAY #30 tablet 06/21/22 Unknown Rx Insulin Degludec [Tresiba] 45 unit SUB-Q QHS #1 vial 06/21/22 Unknown Rx Insulin Glulisine [Apidra] 15 units SUB-Q WMHS #10 ml 06/21/22 Unknown Rx traMADoL [Ultram] 50 mg PO Q6HR PRN #14 tablet 06/21/22 Unknown Rx Active Meds: Active Medications Albuterol (Albuterol 2.5 Mg/3 Ml Nebu) 2.5 mg IH Q3HRT PRN PRN Reason: Shortness Of Breath Famotidine (Famotidine 20 Mg/2 Ml Inj) 20 mg IV QDAY LUKAS Stop: 06/19/22 20:00 Last Admin: 06/19/22 10:44 Dose: 20 mg Famotidine (Famotidine 20 Mg Tab) 20 mg PO QDAY LUKAS Hydromorphone HCl (Hydromorphone 0.5 Mg/0.5 Ml Inj) 0.5 mg IV Q13H PRN PRN Reason: Pain , Severe (7-10) Last Admin: 06/19/22 00:07 Dose: 0.5 mg Insulin Human Regular 100 (units/ Sodium Chloride) 100 mls @ 1 mls/hr IV TITR LUKAS; Protocol Last Titration: 06/19/22 10:45 Dose: 0.5 units/hr, 0.5 mls/hr Potassium Chloride/Dextrose/Sod Cl (D5w/0.45% Nacl/Kcl 20 Meq) 20 meq in 1,000 mls @ 125 mls/hr IV DIRECT LUKAS Last Admin: 06/19/22 07:47 Dose: 125 mls/hr Lactated Ringer's (Lactated Ringers) 1,000 mls @ 999 mls/hr IV BOLUS ONE Stop: 06/19/22 12:00 Last Admin: 06/19/22 10:43 Dose: 999 mls/hr Sodium Chloride (Sodium Chloride 0.9% 10 Ml Flush Syringe) 10 ml IV BID LUKAS Last Admin: 06/19/22 10:44 Dose: 10 ml Sodium Chloride (Sodium Chloride 0.9% 10 Ml Flush Syringe) 10 ml IV PRN PRN PRN Reason: LINE FLUSH Physical Examination Vital signs: Vital Signs Temp Pulse Resp BP Pulse Ox 97.6 F 70 16 134/83 98 06/18/22 13:31 06/18/22 13:31 06/18/22 13:31 06/18/22 13:31 06/18/22 13:31 Vitals reviewed General appearance: Present: mild distress - EENT Eyes: Present: PERRL ENT: hearing intact, clear oral mucosa - Neck Neck: Present: supple, normal ROM - Respiratory Respiratory effort: normal Respiratory: bilateral: CTA - Cardiovascular Heart Sounds: Present: S1 & S2. Absent: rub, click - Extremities Extremities: pulses symmetrical, No edema Peripheral Pulses: within normal limits - Abdominal General gastrointestinal: Present: soft, epigastric tenderness, no rebound, no peritoneal signs, non-distended, normal bowel sounds Male genitourinary: Present: normal - Integumentary Integumentary: Present: clear, warm, dry - Psychiatric Psychiatric: appropriate mood/affect, intact judgment & insight - Neurologic Neurologic: CNII-XII intact, moves all extremities Results - Laboratory Findings CBC and BMP: 06/21/22 05:17 06/21/22 05:17 ABG ABG pH 7.189 pH Units (7.350-7.450) L* 06/18/22 16:47 ABG pCO2 25.3 mm Hg 06/18/22 16:47 ABG pO2 125.4 mm Hg (80.0-90.0) H 06/18/22 16:47 ABG O2 Saturation 98.1 % (95.0-99.0) 06/18/22 16:47 PT/INR, D-dimer PT 13.9 Sec. (12.2-14.9) 06/18/22 14:59 INR 0.97 (0.87-1.13) 06/18/22 14:59 Abnormal lab findings: Abnormal Labs 06/18/22 06/18/22 06/18/22 14:59 14:59 14:59 MCV RDW Lymph # (Auto) Seg Neutrophils % ABG pH ABG pO2 ABG HCO3 ABG Base Excess ABG Hemoglobin Sodium 132 L Potassium 6.7 H* Chloride 92.0 L Carbon Dioxide 13 L BUN 22 H Creatinine 1.6 H Glucose 738 H* POC Glucose Lactic Acid 2.40 H* Phosphorus Alkaline Phosphatase 135 H Urine WBC (Auto) Salicylates < 0.3 L Acetaminophen 06/18/22 06/18/22 06/18/22 14:59 15:26 15:40 MCV 98 H RDW 15.3 H Lymph # (Auto) 1.1 L Seg Neutrophils % 73.0 H ABG pH ABG pO2 ABG HCO3 ABG Base Excess ABG Hemoglobin Sodium Potassium Chloride Carbon Dioxide BUN Creatinine Glucose POC Glucose > 600 H Lactic Acid Phosphorus Alkaline Phosphatase Urine WBC (Auto) Salicylates Acetaminophen 5.0 L 06/18/22 06/18/22 06/18/22 15:43 16:47 16:52 MCV RDW Lymph # (Auto) Seg Neutrophils % ABG pH 7.189 L* ABG pO2 125.4 H ABG HCO3 9.4 L ABG Base Excess -17.2 L ABG Hemoglobin 12.1 L Sodium Potassium Chloride Carbon Dioxide BUN Creatinine Glucose POC Glucose > 600 H Lactic Acid Phosphorus Alkaline Phosphatase Urine WBC (Auto) 48.0 H Salicylates Acetaminophen 06/18/22 06/18/22 06/18/22 17:52 17:59 17:59 MCV RDW Lymph # (Auto) Seg Neutrophils % ABG pH ABG pO2 ABG HCO3 ABG Base Excess ABG Hemoglobin Sodium 133 L Potassium 6.9 H* Chloride 94.3 L Carbon Dioxide 10 L BUN 26 H Creatinine 1.8 H Glucose 792 H* POC Glucose > 600 H Lactic Acid Phosphorus 4.70 H Alkaline Phosphatase Urine WBC (Auto) Salicylates Acetaminophen 06/18/22 06/18/22 06/18/22 21:56 22:32 22:32 MCV RDW Lymph # (Auto) Seg Neutrophils % ABG pH ABG pO2 ABG HCO3 ABG Base Excess ABG Hemoglobin Sodium 147 H D Potassium Chloride 108.1 H Carbon Dioxide 17 L D BUN 24 H Creatinine 1.7 H Glucose 126 H POC Glucose 123 H Lactic Acid 5.30 H* Phosphorus Alkaline Phosphatase Urine WBC (Auto) Salicylates Acetaminophen 06/19/22 06/19/22 06/19/22 00:01 00:49 00:49 MCV RDW Lymph # (Auto) Seg Neutrophils % ABG pH ABG pO2 ABG HCO3 ABG Base Excess ABG Hemoglobin Sodium 146 H Potassium Chloride 107.6 H Carbon Dioxide 20 L BUN 22 H Creatinine 1.6 H Glucose 169 H POC Glucose 121 H Lactic Acid 2.30 H* Phosphorus Alkaline Phosphatase Urine WBC (Auto) Salicylates Acetaminophen 06/19/22 06/19/22 06/19/22 00:59 02:02 03:01 MCV RDW Lymph # (Auto) Seg Neutrophils % ABG pH ABG pO2 ABG HCO3 ABG Base Excess ABG Hemoglobin Sodium Potassium Chloride Carbon Dioxide BUN Creatinine Glucose POC Glucose 159 H 119 H 113 H Lactic Acid Phosphorus Alkaline Phosphatase Urine WBC (Auto) Salicylates Acetaminophen 06/19/22 06/19/22 06/19/22 04:46 05:03 06:03 MCV RDW Lymph # (Auto) Seg Neutrophils % ABG pH ABG pO2 ABG HCO3 ABG Base Excess ABG Hemoglobin Sodium 146 H Potassium Chloride 110.8 H Carbon Dioxide 21 L BUN Creatinine 1.4 H Glucose 151 H POC Glucose 135 H 166 H Lactic Acid Phosphorus Alkaline Phosphatase Urine WBC (Auto) Salicylates Acetaminophen 06/19/22 06/19/22 06/19/22 06:57 08:32 09:21 MCV RDW Lymph # (Auto) Seg Neutrophils % ABG pH ABG pO2 ABG HCO3 ABG Base Excess ABG Hemoglobin Sodium 146 H Potassium Chloride 111.0 H Carbon Dioxide BUN Creatinine Glucose 132 H POC Glucose 158 H 117 H Lactic Acid Phosphorus Alkaline Phosphatase Urine WBC (Auto) Salicylates Acetaminophen 06/19/22 06/19/22 06/19/22 09:21 09:35 10:42 MCV RDW Lymph # (Auto) Seg Neutrophils % ABG pH ABG pO2 ABG HCO3 ABG Base Excess ABG Hemoglobin Sodium Potassium Chloride Carbon Dioxide BUN Creatinine Glucose POC Glucose 121 H 124 H Lactic Acid 3.20 H* Phosphorus Alkaline Phosphatase Urine WBC (Auto) Salicylates Acetaminophen Assessment and Plan DKA (Diabetic Ketoacidosis) Anion Gap Metabolic Acidosis Insulin Dependent Diabetes Mellitus(IDDM) - DKA protocol was initiated, insulin infusion, serial BMPs, correct electrolytes per protocol Persistent Abdominal Pain, possibly pancreatits vs PUD - CT abd/pelvis ordered - PRN Analgesia for pain control - PRN antiemetic for N/V - Continue current IVF resuscitation, add PPI to therapy -Get lipase Acute Kidney Injury(MARÍA) most like Vasomotor Nephropathy/Volume Depletion - Baseline renal function is unknown - Presented with Scr. as high as 1.8, most likely 2/2 to D KA/hypovolemia/Dehydration - Renal function improving post IVF hydration - Avoid nephrotoxic medications - Trend BMP h/o Hypertension - BP stable - Resume home meds once meds list is available - Continue blood pressure monitor per protocol - Maintain SBP greater than 160 h/o Hypothyroidism - resume home Synthroid
[2022-06-19] MEDS ORDERED: HYDROmorphone 0.5 MG/0.5 ML INJ IV PRN (11:56)
--- NOTE | 2022-06-19 13:13 | Cat Scan Report ---
CT ABDOMEN AND PELVIS WITHOUT CONTRAST INDICATION / CLINICAL INFORMATION: Persistent Abdominal pain. TECHNIQUE: Axial CT images were obtained through the abdomen and pelvis without IV contrast. All CT scans at this location are performed using CT dose reduction for ALARA by means of automated exposure control. COMPARISON: None available. FINDINGS: LOWER CHEST: No significant abnormality. LIVER: The liver is enlarged measuring 21 cm in length. GALLBLADDER: Cholecystectomy. BILE DUCTS: No significant abnormality. PANCREAS: There is edema noted around the pancreas characteristic of pancreatitis. SPLEEN: No significant abnormality. ADRENALS: No significant abnormality. RIGHT KIDNEY / URETER: No significant abnormality. LEFT KIDNEY / URETER: No significant abnormality. STOMACH / SMALL BOWEL: No significant abnormality. COLON: No significant abnormality. APPENDIX: No significant abnormality. PERITONEUM: There is a small amount of fluid along the right anterior pararenal fascia. No free air. No fluid collection. LYMPH NODES: No significant adenopathy. AORTA / ARTERIES: No significant abnormality. IVC / VEINS: No significant abnormality. URINARY BLADDER: No significant abnormality. REPRODUCTIVE ORGANS: No significant abnormality. ADDITIONAL FINDINGS: None. SKELETAL SYSTEM: There are several small lytic foci noted in the iliac bones Postoperative changes ar e noted in the left iliac bone IMPRESSION: 1. There is edema noted around the pancreas with a small amount of fluid in the right anterior parare nal fascia. The appearance is most characteristic of pancreatitis. Correlation with amylase and lipas e levels is recommended. 2. There is hepatomegaly. 3. There are several small lytic foci noted in the iliac bones. These are nonspecific. The differenti al diagnosis includes both benign and malignant etiologies. Depending on clinical circumstance. [facility] bone scan may be of use to further evaluate. Signer Name: James Finley MD Signed: 06/19/2022 1:08 PM Workstation Name: [email or web address]
[2022-06-19] MEDS ORDERED: DEXTROSE 50% IN WATER (25GM) 50 ML SYRINGE IV PRN (14:58)
[2022-06-19] MEDS ORDERED: ONDANSETRON 4 MG/2 ML INJ IV PRN (14:59)
[2022-06-19 16:19] LABS: BUN/Creatinine Ratio 11; Blood Urea Nitrogen 12 mg/dL (9-20); Calcium 8.7 mg/dL (8.4-10.2); Hemolysis Index 23
[2022-06-19] MEDS: LACTATED RINGERS 1,000 ML IV SCH (16:30)
[2022-06-19] MEDS ORDERED: INSULIN GLARGINE 100 UNITS/ML SUB-Q SCH (16:30)
[2022-06-19] MEDS: INSULIN REGULAR, HUMAN 100 UNITS/1 ML SUB-Q SCH (16:50)
[2022-06-19] MEDS: QUEtiapine 25 MG TAB PO SCH (21:41)
[2022-06-19] MEDS ORDERED: NON-FORMULARY EACH (Quetiapine Fumarate [Seroquel] 50 MG Tablet) PO SCH (22:00)
[2022-06-20] MEDS: LACTATED RINGERS 1,000 ML IV SCH ×2 (01:48→13:20)
[2022-06-20] MEDS: HYDROmorphone 0.5 MG/0.5 ML INJ IV PRN ×2 (04:24→21:34)
[2022-06-20 05:05] LABS: Hematocrit 32.1 % (35.5-45.6); Hemoglobin 10.8 gm/dl (11.8-15.2); Mean Corpuscular HGB Conc 34 % (32-34); Mean Corpuscular Volume 94 fl (84-94); Platelet Count 223 K/mm3 (140-440); Red Blood Count 3.42 M/mm3 (3.65-5.03); Red Cell Distribution Width 15.5 % (13.2-15.2)
[2022-06-20 05:27] LABS: Alanine Aminotransferase 15 units/L (7-56); Albumin 3.4 g/dL (3.9-5); BUN/Creatinine Ratio 7; Blood Urea Nitrogen 8 mg/dL (9-20); Calcium 8.6 mg/dL (8.4-10.2); Hemolysis Index 6
[2022-06-20 05:28] LABS: Bilirubin,Direct < 0.2 mg/dL (0-0.2)
[2022-06-20] MEDS: INSULIN REGULAR, HUMAN 100 UNITS/1 ML SUB-Q SCH ×4 (08:05→21:33)
[2022-06-20] MEDS: FAMOTIDINE 20 MG TAB PO SCH (09:38)
[2022-06-20] MEDS: LISINOPRIL 5 MG TAB PO SCH (09:38)
[2022-06-20] MEDS: AMITRIPTYLINE 25 MG TAB PO SCH (09:38)
[2022-06-20] MEDS: ASPIRIN 325 MG TAB PO SCH (09:38)
--- NOTE | 2022-06-20 10:07 | Progress Note ---
Assessment and Plan DKA (diabetic ketoacidosis) Acidosis, metabolic Volume depletion MARÍA (acute kidney injury) Malnutrition - prn supplemental oxygen to keep O2 sats > 90% - prn bronchodilators (EBEN) with pulm hygiene per RT - continue accuchecks with glycemic control per SSI for target blood glucose < 180 mg/dL - avoid nephrotoxins, renally dose all medications - continue mobility protocols to prevent pressure ulcers - PT/OT as tolerated - tobacco abstinence strongly counseled at the bedside - home oxygen evaluation at discharge - GI & VTE prophylaxis - Flu & pneumovax per protocol - continue other care per attending / other consultants - prn analgesia per pain score ....... to transfer to medical floor ... re-evaluate in am & prn Subjective Date of service: 06/20/22 Principal diagnosis: DKA; Metabolic Acidosis; IVVD; MARÍA; Malnutrition Interval history: Patient is seen today for: DKA; Metabolic Acidosis; IVVD; MARÍA; Malnutrition Seen and examined at bedside; 24hour events reviewed; nursing and respiratory care staff consulted; no adverse overnight events reported to me; resting peacefully in bed; still with some epigastric pain; off IV insulin and overall feels better; hemodynamically stable Objective Vital Signs - 12hr 06/19/22 06/19/22 06/19/22 22:11 22:21 22:30 Temperature Pulse Rate 102 H 91 H 89 Pulse Rate [ From Monitor] Respiratory 15 7 L 8 L Rate Blood Pressure 132/92 144/104 126/88 O2 Sat by Pulse 98 97 Oximetry 06/19/22 06/19/22 06/19/22 22:41 22:51 23:00 Temperature Pulse Rate 94 H 100 H 102 H Pulse Rate [ From Monitor] Respiratory 7 L 8 L 8 L Rate Blood Pressure 126/88 126/88 126/81 O2 Sat by Pulse 95 98 Oximetry 06/19/22 06/19/22 06/19/22 23:11 23:21 23:31 Temperature Pulse Rate 108 H 112 H 119 H Pulse Rate [ From Monitor] Respiratory 7 L 18 16 Rate Blood Pressure 126/81 126/81 126/81 O2 Sat by Pulse 94 97 98 Oximetry 06/19/22 06/19/22 06/19/22 23:41 23:51 23:55 Temperature Pulse Rate 103 H 107 H 105 H Pulse Rate [ From Monitor] Respiratory 12 6 L 9 L Rate Blood Pressure 126/81 126/81 126/81 O2 Sat by Pulse 99 97 99 Oximetry 06/20/22 06/20/22 06/20/22 00:00 00:11 00:21 Temperature Pulse Rate 101 H 104 H 106 H Pulse Rate [ 105 H From Monitor] Respiratory 7 L 12 14 Rate Blood Pressure 128/79 128/79 128/79 O2 Sat by Pulse 96 97 97 Oximetry 06/20/22 06/20/22 06/20/22 00:30 00:41 07:07 Temperature 97.7 F Pulse Rate 103 H 97 H Pulse Rate [ From Monitor] Respiratory 8 L 11 L Rate Blood Pressure 114/85 114/85 O2 Sat by Pulse 100 100 Oximetry 06/20/22 06/20/22 08:10 09:38 Temperature Pulse Rate 83 Pulse Rate [ From Monitor] Respiratory Rate Blood Pressure 151/94 O2 Sat by Pulse 99 Oximetry Constitutional: no acute distress Eyes: non-icteric ENT: oropharynx moist Neck: supple, no lymphadenopathy, no JVD Effort: normal Ascultation: Bilateral: clear Percussion: Bilateral: not dull Cardiovascular: regular rate and rhythm Gastrointestinal: normoactive bowel sounds, soft, tender (epigastric), non- distended Integumentary: normal Extremities: no cyanosis, no edema, pulses normal, no ischemia or petechiae Neurologic: non-focal exam, pupils equal and round, CN II-XII normal, motor strength normal and Psychiatric: mood appropriate, affect normal CBC and BMP: 06/20/22 04:06 06/20/22 04:06 ABG, PT/INR, D-dimer: ABG ABG pH 7.189 pH Units (7.350-7.450) L* 06/18/22 16:47 ABG pCO2 25.3 mm Hg 06/18/22 16:47 ABG pO2 125.4 mm Hg (80.0-90.0) H 06/18/22 16:47 ABG O2 Saturation 98.1 % (95.0-99.0) 06/18/22 16:47 PT/INR, D-dimer PT 13.9 Sec. (12.2-14.9) 06/18/22 14:59 INR 0.97 (0.87-1.13) 06/18/22 14:59 Abnormal lab findings: Abnormal Labs 06/18/22 06/18/22 06/18/22 14:59 14:59 14:59 WBC RBC Hgb Hct MCV RDW Lymph # (Auto) Seg Neutrophils % ABG pH ABG pO2 ABG HCO3 ABG Base Excess ABG Hemoglobin Sodium 132 L Potassium 6.7 H* Chloride 92.0 L Carbon Dioxide 13 L BUN 22 H Creatinine 1.6 H Glucose 738 H* POC Glucose Hemoglobin A1c Lactic Acid 2.40 H* Phosphorus Alkaline Phosphatase 135 H Total Protein Albumin Triglycerides Amylase Lipase Urine WBC (Auto) Salicylates < 0.3 L Acetaminophen 06/18/22 06/18/22 06/18/22 14:59 15:26 15:40 WBC RBC Hgb Hct MCV 98 H RDW 15.3 H Lymph # (Auto) 1.1 L Seg Neutrophils % 73.0 H ABG pH ABG pO2 ABG HCO3 ABG Base Excess ABG Hemoglobin Sodium Potassium Chloride Carbon Dioxide BUN Creatinine Glucose POC Glucose > 600 H Hemoglobin A1c Lactic Acid Phosphorus Alkaline Phosphatase Total Protein Albumin Triglycerides Amylase Lipase Urine WBC (Auto) Salicylates Acetaminophen 5.0 L 06/18/22 06/18/22 06/18/22 15:43 16:47 16:52 WBC RBC Hgb Hct MCV RDW Lymph # (Auto) Seg Neutrophils % ABG pH 7.189 L* ABG pO2 125.4 H ABG HCO3 9.4 L ABG Base Excess -17.2 L ABG Hemoglobin 12.1 L Sodium Potassium Chloride Carbon Dioxide BUN Creatinine Glucose POC Glucose > 600 H Hemoglobin A1c Lactic Acid Phosphorus Alkaline Phosphatase Total Protein Albumin Triglycerides Amylase Lipase Urine WBC (Auto) 48.0 H Salicylates Acetaminophen 06/18/22 06/18/22 06/18/22 17:52 17:59 17:59 WBC RBC Hgb Hct MCV RDW Lymph # (Auto) Seg Neutrophils % ABG pH ABG pO2 ABG HCO3 ABG Base Excess ABG Hemoglobin Sodium 133 L Potassium 6.9 H* Chloride 94.3 L Carbon Dioxide 10 L BUN 26 H Creatinine 1.8 H Glucose 792 H* POC Glucose > 600 H Hemoglobin A1c Lactic Acid Phosphorus 4.70 H Alkaline Phosphatase Total Protein Albumin Triglycerides Amylase Lipase Urine WBC (Auto) Salicylates Acetaminophen 06/18/22 06/18/22 06/18/22 21:56 22:32 22:32 WBC RBC Hgb Hct MCV RDW Lymph # (Auto) Seg Neutrophils % ABG pH ABG pO2 ABG HCO3 ABG Base Excess ABG Hemoglobin Sodium 147 H D Potassium Chloride 108.1 H Carbon Dioxide 17 L D BUN 24 H Creatinine 1.7 H Glucose 126 H POC Glucose 123 H Hemoglobin A1c Lactic Acid 5.30 H* Phosphorus Alkaline Phosphatase Total Protein Albumin Triglycerides Amylase Lipase Urine WBC (Auto) Salicylates Acetaminophen 06/19/22 06/19/22 06/19/22 00:01 00:49 00:49 WBC RBC Hgb Hct MCV RDW Lymph # (Auto) Seg Neutrophils % ABG pH ABG pO2 ABG HCO3 ABG Base Excess ABG Hemoglobin Sodium 146 H Potassium Chloride 107.6 H Carbon Dioxide 20 L BUN 22 H Creatinine 1.6 H Glucose 169 H POC Glucose 121 H Hemoglobin A1c Lactic Acid 2.30 H* Phosphorus Alkaline Phosphatase Total Protein Albumin Triglycerides Amylase Lipase Urine WBC (Auto) Salicylates Acetaminophen 06/19/22 06/19/22 06/19/22 00:59 02:02 03:01 WBC RBC Hgb Hct MCV RDW Lymph # (Auto) Seg Neutrophils % ABG pH ABG pO2 ABG HCO3 ABG Base Excess ABG Hemoglobin Sodium Potassium Chloride Carbon Dioxide BUN Creatinine Glucose POC Glucose 159 H 119 H 113 H Hemoglobin A1c Lactic Acid Phosphorus Alkaline Phosphatase Total Protein Albumin Triglycerides Amylase Lipase Urine WBC (Auto) Salicylates Acetaminophen 06/19/22 06/19/22 06/19/22 04:46 05:03 06:03 WBC RBC Hgb Hct MCV RDW Lymph # (Auto) Seg Neutrophils % ABG pH ABG pO2 ABG HCO3 ABG Base Excess ABG Hemoglobin Sodium 146 H Potassium Chloride 110.8 H Carbon Dioxide 21 L BUN Creatinine 1.4 H Glucose 151 H POC Glucose 135 H 166 H Hemoglobin A1c Lactic Acid Phosphorus Alkaline Phosphatase Total Protein Albumin Triglycerides Amylase Lipase Urine WBC (Auto) Salicylates Acetaminophen 06/19/22 06/19/22 06/19/22 06:57 08:32 09:21 WBC RBC Hgb Hct MCV RDW Lymph # (Auto) Seg Neutrophils % ABG pH ABG pO2 ABG HCO3 ABG Base Excess ABG Hemoglobin Sodium 146 H Potassium Chloride 111.0 H Carbon Dioxide BUN Creatinine Glucose 132 H POC Glucose 158 H 117 H Hemoglobin A1c Lactic Acid Phosphorus Alkaline Phosphatase Total Protein Albumin Triglycerides Amylase Lipase Urine WBC (Auto) Salicylates Acetaminophen 0706/19/22 06/19/22 09:21 09:35 10:42 WBC RBC Hgb Hct MCV RDW Lymph # (Auto) Seg Neutrophils % ABG pH ABG pO2 ABG HCO3 ABG Base Excess ABG Hemoglobin Sodium Potassium Chloride Carbon Dioxide BUN Creatinine Glucose POC Glucose 121 H 124 H Hemoglobin A1c Lactic Acid 3.20 H* Phosphorus Alkaline Phosphatase Total Protein Albumin Triglycerides Amylase Lipase Urine WBC (Auto) Salicylates Acetaminophen 06/19/22 06/19/22 06/19/22 14:58 15:47 16:24 WBC RBC Hgb Hct MCV RDW Lymph # (Auto) Seg Neutrophils % ABG pH ABG pO2 ABG HCO3 ABG Base Excess ABG Hemoglobin Sodium Potassium Chloride 110.3 H Carbon Dioxide 21 L BUN Creatinine Glucose 164 H POC Glucose 125 H 163 H Hemoglobin A1c Lactic Acid Phosphorus Alkaline Phosphatase Total Protein Albumin Triglycerides Amylase Lipase Urine WBC (Auto) Salicylates Acetaminophen 06/19/22 06/20/22 06/20/22 21:43 04:06 04:06 WBC 3.9 L RBC 3.42 L Hgb 10.8 L Hct 32.1 L D MCV RDW 15.5 H Lymph # (Auto) Seg Neutrophils % ABG pH ABG pO2 ABG HCO3 ABG Base Excess ABG Hemoglobin Sodium Potassium Chloride 110.3 H Carbon Dioxide BUN 8 L Creatinine Glucose POC Glucose 107 H Hemoglobin A1c Lactic Acid Phosphorus Alkaline Phosphatase Total Protein 5.7 L Albumin 3.4 L Triglycerides 192 H Amylase 180 H Lipase 249 H Urine WBC (Auto) Salicylates Acetaminophen 06/20/22 06/20/22 06/20/22 04:06 07:19 08:04 WBC RBC Hgb Hct MCV RDW Lymph # (Auto) Seg Neutrophils % ABG pH ABG pO2 ABG HCO3 ABG Base Excess ABG Hemoglobin Sodium Potassium Chloride Carbon Dioxide BUN Creatinine Glucose POC Glucose 133 H 111 H Hemoglobin A1c 10.7 H Lactic Acid Phosphorus Alkaline Phosphatase Total Protein Albumin Triglycerides Amylase Lipase Urine WBC (Auto) Salicylates Acetaminophen Allied health notes reviewed: nursing
--- NOTE | 2022-06-20 10:47 | Progress Note ---
<ARVIND BRAUN - Last Filed: 06/20/22 16:33> Assessment and Plan Assessment and plan: This is a 57-year-old male with known past medical history of HTN, IDDM, and hypothyroidism admitted for DKA Hospital Course to Date: 06/19: Patient remains on DKA protocol, anion gap closed this am. Patient still complaining of severe persistent abdominal pain. Per patient, patient has been constant since admit with no improvement. Orders placed for CT abd/pelvis. Depends on CT result will most likely transition to SubQ insulin today. Continue IVF resuscitation and insulin gtt per DKA protocol. [facility] is also following. 06/20: CT abd/Pelvis revealed acute pancreatitis. Patient denied any alcohol abuse, amylase and lipase elevated. Unclear etiology. Will get a MRCP for further eval. Patient is tolerating clear liquid diet, continue IVF hydration and PRN analgesia for pain management. D/W CCM patient is stable for transfer to the floor. Assessment and Plan #Insulin Dependent Diabetes Mellitus(IDDM) #S/p DKA (Diabetic Ketoacidosis) #Anion Gap Metabolic Acidosis-resolved - Presented with high BG, nausea, and abdominal pain - s/p DKA protocol was initiated - HgbA1C 10.7 - Transitioned to subQ insulin overnight - Continue SSI and Lantus Qhs - Monitor and replace electrolytes as needed - [facility] also on consult #Persistent Abdominal Pain #Acute Pancreatitis - Unclear etiology - Per patient, abdominal pain is unchanged since admit - Patient describe pain as persistent, cramp-like, diffuse pain. Abdomen is soft but tender to touch. Patient denied any N/V, no diarrhea or bloating. - CT Abd/Pelvis reviewed suggesting acute pancreatitis - Elevated Lipase and amylase - MRCP ordered - PRN Analgesia for pain control - PRN antiemetic for N/V - Continue current IVF resuscitation - Tolerating clear liquid diet #Acute Kidney Injury(MARÍA) most like Vasomotor Nephropathy #Volume Depletion #Metabolic Acidosis-resolved - Baseline renal function is unknown - Presented with Scr. as high as 1.8, most likely 2/2 to DKA/hypovolemia/Dehydration - Renal function normalized post IVF hydration - Continue IV fluid hydration - Strict intake and output - Avoid nephrotoxic medications - Monitor and replace electrolytes as needed - Trend BMP #Small Lytic Foci - CTAP also revealed several small lytic foci noted in the iliac bones. - Follow up outpatient for a nuclear medicine bone scan for further eval. #Hypertension - BP stable - Home meds resumed - Continue blood pressure monitor per protocol - Maintain SBP greater than 160 #Hypothyroidism - resume home Synthroid #GI/DVT Prophylaxis - PPI- Pepcid - SCD to bilateral lower extremities while in bed #Advance Care Planning - Disease education data, care plan, diagnoses, and prognosis were discussed wit h patient at the bedside. Patient is a FULL code. Patient acknowledged understanding and agreement with current care plan. The high probability of a clinically significant, sudden or life threatening deterioration of the [GI, Endo, ] system(s) required my full and direct attention, intervention and personal management. The aggregate critical care time was [60] minutes. This time is in addition to time spent performing reported procedures but includes the following: [x] Data Review and interpretation [x] Patient assessment and monitoring of vital signs [x] Documentation [x] Medication orders and management Disposition Plan: ICU Total Time Spent with Patient (Minutes): 60 History Interval history: Patient seen and examined at the bedside. Transitioned to SubQ insulin overnight. Still c/o of abdominal pain, no nausea/vomiting. VSS Hospitalist Physical - Constitutional Vitals: Temp Pulse Resp BP Pulse Ox 97.7 F 83 11 L 151/94 99 06/20/22 07:07 06/20/22 09:38 06/20/22 00:41 06/20/22 09:38 06/20/22 08:10 General appearance: Present: no acute distress, well-nourished, obese - EENT Eyes: Present: PERRL ENT: hearing intact - Neck Neck: Present: normal ROM - Respiratory Respiratory effort: normal Respiratory: bilateral: diminished - Cardiovascular Rhythm: regular Heart Sounds: Present: S1 & S2 - Extremities Extremities: no ischemia, pulses intact, pulses symmetrical Peripheral Pulses: within normal limits - Abdominal General gastrointestinal: soft, non-distended, normal bowel sounds - Integumentary Integumentary: Present: warm, dry - Psychiatric Psychiatric: appropriate mood/affect, cooperative - Neurologic Neurologic: CNII-XII intact, moves all extremities - Allied Health Allied health notes reviewed: nursing, case management HEART Score - HEART Score Troponin: Troponin T < 0.010 ng/mL (0.00-0.029) 06/18/22 14:59 Results - Labs CBC & Chem 7: 06/20/22 04:06 06/20/22 04:06 Labs: Laboratory Last Values WBC 3.9 K/mm3 (4.5-11.0) L 06/20/22 04:06 RBC 3.42 M/mm3 (3.65-5.03) L 06/20/22 04:06 Hgb 10.8 gm/dl (11.8-15.2) L 06/20/22 04:06 Hct 32.1 % (35.5-45.6) L D 06/20/22 04:06 MCV 94 fl (84-94) 06/20/22 04:06 MCH 32 pg (28-32) 06/20/22 04:06 MCHC 34 % (32-34) 06/20/22 04:06 RDW 15.5 % (13.2-15.2) H 06/20/22 04:06 Plt Count 223 K/mm3 (140-440) 06/20/22 04:06 Lymph % (Auto) 22.5 % (13.4-35.0) 06/18/22 15:40 Martin % (Auto) 3.6 % (0.0-7.3) 06/18/22 15:40 Eos % (Auto) 0.3 % (0.0-4.3) 06/18/22 15:40 Baso % (Auto) 0.6 % (0.0-1.8) 06/18/22 15:40 Lymph # (Auto) 1.1 K/mm3 (1.2-5.4) L 06/18/22 15:40 Martin # (Auto) 0.2 K/mm3 (0.0-0.8) 06/18/22 15:40 Eos # (Auto) 0.0 K/mm3 (0.0-0.4) 06/18/22 15:40 Baso # (Auto) 0.0 K/mm3 (0.0-0.1) 06/18/22 15:40 Seg Neutrophils % 73.0 % (40.0-70.0) H 06/18/22 15:40 Seg Neutrophils # 3.5 K/mm3 (1.8-7.7) 06/18/22 15:40 PT 13.9 Sec. (12.2-14.9) 06/18/22 14:59 INR 0.97 (0.87-1.13) 06/18/22 14:59 ABG pH 7.189 pH Units (7.350-7.450) L* 06/18/22 16:47 ABG pCO2 25.3 mm Hg 06/18/22 16:47 ABG pO2 125.4 mm Hg (80.0-90.0) H 06/18/22 16:47 ABG HCO3 9.4 mmol/L (20.0-26.0) L 06/18/22 16:47 ABG O2 Saturation 98.1 % (95.0-99.0) 06/18/22 16:47 ABG O2 Content 16.6 (0.0-44) 06/18/22 16:47 ABG Base Excess -17.2 mmol/L (-2.0-3.0) L 06/18/22 16:47 ABG Hemoglobin 12.1 gm/dl (14.0-18.0) L 06/18/22 16:47 ABG Carboxyhemoglobin 1.5 % (0.0-5.0) 06/18/22 16:47 ABG Methemoglobin 0.6 % (0.0-1.5) 06/18/22 16:47 Oxyhemoglobin 96.1 % (95.0-99.0) 06/18/22 16:47 FiO2 21 % 06/18/22 16:47 Sodium 145 mmol/L (137-145) 06/20/22 04:06 Potassium 3.8 mmol/L (3.6-5.0) 06/20/22 04:06 Chloride 110.3 mmol/L (98-107) H 06/20/22 04:06 Carbon Dioxide 25 mmol/L (22-30) 06/20/22 04:06 Anion Gap 14 mmol/L 06/20/22 04:06 BUN 8 mg/dL (9-20) L 06/20/22 04:06 Creatinine 1.1 mg/dL (0.8-1.3) 06/20/22 04:06 Estimated GFR > 60 ml/min 06/20/22 04:06 BUN/Creatinine Ratio 7 % 06/20/22 04:06 Glucose 91 mg/dL (75-100) 06/20/22 04:06 POC Glucose 111 mg/dL (70-105) H 06/20/22 08:04 Hemoglobin A1c 10.7 % (4-6) H 06/20/22 04:06 Ketones Quantitative Large (Negative) 06/18/22 14:59 Lactic Acid 1.40 mmol/L (0.7-2.0) 06/19/22 15:47 Calcium 8.6 mg/dL (8.4-10.2) 06/20/22 04:06 Phosphorus 2.80 mg/dL (2.5-4.5) 06/20/22 04:06 Magnesium 1.90 mg/dL (1.7-2.3) 06/20/22 04:06 Total Bilirubin 0.40 mg/dL (0.1-1.2) 06/20/22 04:06 Direct Bilirubin < 0.2 mg/dL (0-0.2) 06/20/22 04:06 AST 24 units/L (5-40) 06/20/22 04:06 ALT 15 units/L (7-56) 06/20/22 04:06 Alkaline Phosphatase 100 units/L (35-129) 06/20/22 04:06 Total Creatine Kinase 93 units/L (55-170) 06/18/22 14:59 Total Creatine Kinase 98 units/L (55-170) 06/18/22 14:59 Troponin T < 0.010 ng/mL (0.00-0.029) 06/18/22 14:59 C-Reactive Protein 0.30 mg/dL (0.00-1.30) 06/18/22 14:59 NT-Pro-B Natriuret Pep 304.5 pg/mL (0-900) 06/18/22 14:59 Total Protein 5.7 g/dL (6.3-8.2) L 06/20/22 04:06 Albumin 3.4 g/dL (3.9-5) L 06/20/22 04:06 Albumin/Globulin Ratio 1.5 % 06/20/22 04:06 Triglycerides 192 mg/dL (2-149) H 06/20/22 04:06 Amylase 180 units/L (27-131) H 06/20/22 04:06 Lipase 249 units/L (13-60) H 06/20/22 04:06 Urine Color Yellow (Yellow) 06/18/22 15:43 Urine Turbidity Clear (Clear) 06/18/22 15:43 Urine pH 5.0 (5.0-7.0) 06/18/22 15:43 Ur Specific [place] 1.010 (1.003-1.030) 06/18/22 15:43 Urine Protein <15 mg/dl mg/dL (Negative) 06/18/22 15:43 Urine Glucose (UA) Negative mg/dL (Negative) 06/18/22 15:43 Urine Ketones 1 mg/dL (Negative) 06/18/22 15:43 Urine Blood Negative (Negative) 06/18/22 15:43 Urine Nitrite Negative (Negative) 06/18/22 15:43 Ur Reducing Substances Not Reportable 06/18/22 15:43 Urine Bilirubin Negative (Negative) 06/18/22 15:43 Urine Ictotest Not Reportable 06/18/22 15:43 Urine Urobilinogen 2.0 mg/dL (<2.0) 06/18/22 15:43 Ur Leukocyte Esterase 1.0 (Negative) 06/18/22 15:43 Urine WBC (Auto) 48.0 /HPF (0.0-6.0) H 06/18/22 15:43 Urine RBC (Auto) 14.0 /HPF (0.0-6.0) 06/18/22 15:43 U Epithel Cells (Auto) 6.0 /HPF (0-13.0) 06/18/22 15:43 Urine Bacteria (Auto) 1+ /HPF (Negative) 06/18/22 15:43 Urine Mucus Few /HPF 06/18/22 15:43 Urine Yeast (Budding) 2+ /HPF 06/18/22 15:43 Salicylates < 0.3 mg/dL (2.8-20.0) L 06/18/22 14:59 Urine Opiates Screen Presumptive negative 06/18/22 15:43 Urine Methadone Screen Presumptive negative 06/18/22 15:43 Acetaminophen 5.0 ug/mL (10.0-30.0) L 06/18/22 14:59 Ur Barbiturates Screen Presumptive negative 06/18/22 15:43 Ur Phencyclidine Scrn Presumptive negative 06/18/22 15:43 Ur Amphetamines Screen Presumptive negative 06/18/22 15:43 U Benzodiazepines Scrn Presumptive negative 06/18/22 15:43 Urine Cocaine Screen Presumptive negative 06/18/22 15:43 U Marijuana (THC) Screen Presumptive negative 06/18/22 15:43 Drugs of Abuse Note Disclamer 06/18/22 15:43 Plasma/Serum Alcohol < 0.01 % (0-0.07) 06/18/22 14:59 Hou/IV: Voiding Method Urinal Active Medications - Current Medications Current Medications: Generic Name Dose Route Start Last Admin Trade Name Freq PRN Reason Stop Dose Admin Albuterol 2.5 mg 06/18/22 17:08 Albuterol 2.5 Mg/3 Ml Nebu IH Q3HRT PRN Shortness Of Breath Amitriptyline HCl 75 mg 06/20/22 10:00 06/20/22 09:38 Amitriptyline 25 Mg Tab PO 75 mg QDAY LUKAS Administration Aspirin 325 mg 06/20/22 10:00 06/20/22 09:38 Aspirin 325 Mg Tab PO 325 mg QDAY LUKAS Administration Dextrose 50 ml 06/19/22 14:58 Dextrose 50% In Water (25gm) 50 Ml Syringe IV Q30MIN PRN Hypoglycemia Protocol Famotidine 20 mg 06/20/22 10:00 06/20/22 09:38 Famotidine 20 Mg Tab PO 20 mg QDAY LUKAS Administration Hydromorphone HCl 0.5 mg 06/19/22 17:09 06/20/22 04:24 Hydromorphone 0.5 Mg/0.5 Ml Inj IV 0.5 mg Q4HR PRN Administration Pain , Severe (7-10) Lactated Ringer's 1,000 mls @ 100 mls/hr 06/19/22 15:00 06/20/22 01:48 Lactated Ringers IV 100 mls/hr DIRECT LUKAS Administration Insulin Human Regular 0 units 06/19/22 16:30 06/20/22 08:05 Insulin Regular, Human 100 Units/1 Ml SUB-Q Not Given ACHS LUKAS Protocol Levothyroxine Sodium 40 mcg 06/20/22 06:00 Levothyroxine 50 Mcg Tab PO DAILY@0600 LUKAS Lisinopril 5 mg 06/20/22 10:00 06/20/22 09:38 Lisinopril 5 Mg Tab PO 5 mg QDAY LUKAS Administration Ondansetron HCl 4 mg 06/19/22 14:59 Ondansetron 4 Mg/2 Ml Inj IV Q6H PRN Nausea And Vomiting Quetiapine Fumarate 50 mg 06/19/22 22:00 06/19/22 21:41 Quetiapine 25 Mg Tab PO 50 mg QHS LUKAS Administration Sodium Chloride 10 ml 06/18/22 22:00 06/20/22 09:38 Sodium Chloride 0.9% 10 Ml Flush Syringe IV 10 ml BID LUKAS Administration Sodium Chloride 10 ml 06/18/22 17:08 Sodium Chloride 0.9% 10 Ml Flush Syringe IV PRN PRN LINE FLUSH Nutrition/Malnutrition Assess - Dietary Evaluation Nutrition/Malnutrition Findings: Nutrition Notes Start: 06/19/22 15:06 Freq: Status: Active Protocol: Document 06/19/22 15:06 LILIBETH (Rec: 06/19/22 15:24 LILIBETH [id number]) Nutrition Notes 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 Current Diet Clear Liquids Diet (from D ). Labs/Tests 06/19: Na 146, Cl 111.0, Glu 132. Pertinent Medications 06/19: Nutritionally unremarkable. 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 Pt will have the first meald at [facility], currently still on NPO., will assess at F/U. Pt is on Room Air, O2 saturation @ 100%, according to Physical Assessment History notes. Pt complains of nausea and abdominal pain, according to Physical Assessment History notes. Pt shows no signs of concern for risk of malnutrition at the time, according to Physical Assessment History notes. Percent of energy/protein needs met: Prescribed Clear Liquids Diet provides for energy/protein needs (590 Kcal/16 g) during LOS Burn Absent Trauma Absent GI Symptoms Nausea Food Allergy No Skin Integrity/Comment Assessment WNL. 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 Is patient on ventilator? No Is Patient Ambulatory and/or Out of Bed Yes REE-([facility]-ambulatory/OOB) [ [id number]] Calculation Used for Recommendations [facility] Additional Notes Protein: 0.8-1.2 g/Kg ABW; 52- 78 g/day. Fluids: 1 ml/Kcal, or as per MD. Nutrition Intervention Change Diet Order: Advance to Clear Liquids Diet, eventually, advance to Full Liquids Diet as tolerated. Follow-Up By: 06/26/22 Additional Comments Start monitoring food tolerance, %PO intake of meals , and BM. <URIEL BRANDON - Last Filed: 06/21/22 07:38> Assessment and Plan Assessment and plan: I saw and evaluated the patient. I agree with the findings and the plan of care as documented in the Nurse Practitioner's~note, with the following corrections and additions. Hospitalist Physical - Constitutional Vitals: Temp Pulse Resp BP Pulse Ox 98.6 F 80 18 101/66 98 06/21/22 05:11 06/21/22 05:11 06/21/22 05:11 06/21/22 05:11 06/21/22 05:11 HEART Score - HEART Score Troponin: Troponin T < 0.010 ng/mL (0.00-0.029) 06/18/22 14:59 Results - Labs CBC & Chem 7: 06/21/22 05:17 06/21/22 05:17 Labs: Laboratory Last Values WBC 3.1 K/mm3 (4.5-11.0) L 06/21/22 05:17 RBC 3.29 M/mm3 (3.65-5.03) L 06/21/22 05:17 Hgb 10.6 gm/dl (11.8-15.2) L 06/21/22 05:17 Hct 31.1 % (35.5-45.6) L 06/21/22 05:17 MCV 94 fl (84-94) 06/21/22 05:17 MCH 32 pg (28-32) 06/21/22 05:17 MCHC 34 % (32-34) 06/21/22 05:17 RDW 15.2 % (13.2-15.2) 06/21/22 05:17 Plt Count 178 K/mm3 (140-440) 06/21/22 05:17 Lymph % (Auto) 22.5 % (13.4-35.0) 06/18/22 15:40 Martin % (Auto) 3.6 % (0.0-7.3) 06/18/22 15:40 Eos % (Auto) 0.3 % (0.0-4.3) 06/18/22 15:40 Baso % (Auto) 0.6 % (0.0-1.8) 06/18/22 15:40 Lymph # (Auto) 1.1 K/mm3 (1.2-5.4) L 06/18/22 15:40 Martin # (Auto) 0.2 K/mm3 (0.0-0.8) 06/18/22 15:40 Eos # (Auto) 0.0 K/mm3 (0.0-0.4) 06/18/22 15:40 Baso # (Auto) 0.0 K/mm3 (0.0-0.1) 06/18/22 15:40 Seg Neutrophils % 73.0 % (40.0-70.0) H 06/18/22 15:40 Seg Neutrophils # 3.5 K/mm3 (1.8-7.7) 06/18/22 15:40 PT 13.9 Sec. (12.2-14.9) 06/18/22 14:59 INR 0.97 (0.87-1.13) 06/18/22 14:59 ABG pH 7.189 pH Units (7.350-7.450) L* 06/18/22 16:47 ABG pCO2 25.3 mm Hg 06/18/22 16:47 ABG pO2 125.4 mm Hg (80.0-90.0) H 06/18/22 16:47 ABG HCO3 9.4 mmol/L (20.0-26.0) L 06/18/22 16:47 ABG O2 Saturation 98.1 % (95.0-99.0) 06/18/22 16:47 ABG O2 Content 16.6 (0.0-44) 06/18/22 16:47 ABG Base Excess -17.2 mmol/L (-2.0-3.0) L 06/18/22 16:47 ABG Hemoglobin 12.1 gm/dl (14.0-18.0) L 06/18/22 16:47 ABG Carboxyhemoglobin 1.5 % (0.0-5.0) 06/18/22 16:47 ABG Methemoglobin 0.6 % (0.0-1.5) 06/18/22 16:47 Oxyhemoglobin 96.1 % (95.0-99.0) 06/18/22 16:47 FiO2 21 % 06/18/22 16:47 Sodium 143 mmol/L (137-145) 06/21/22 05:17 Potassium 3.5 mmol/L (3.6-5.0) L 06/21/22 05:17 Chloride 106.0 mmol/L (98-107) 06/21/22 05:17 Carbon Dioxide 27 mmol/L (22-30) 06/21/22 05:17 Anion Gap 14 mmol/L 06/21/22 05:17 BUN 4 mg/dL (9-20) L 06/21/22 05:17 Creatinine 1.0 mg/dL (0.8-1.3) 06/21/22 05:17 Estimated GFR > 60 ml/min 06/21/22 05:17 BUN/Creatinine Ratio 4 % 06/21/22 05:17 Glucose 43 mg/dL (75-100) L 06/21/22 05:17 POC Glucose 165 mg/dL (70-105) H 06/20/22 21:23 Hemoglobin A1c 10.7 % (4-6) H 06/20/22 04:06 Ketones Quantitative Large (Negative) 06/18/22 14:59 Lactic Acid 1.40 mmol/L (0.7-2.0) 06/19/22 15:47 Calcium 8.5 mg/dL (8.4-10.2) 06/21/22 05:17 Phosphorus 4.00 mg/dL (2.5-4.5) D 06/21/22 05:17 Magnesium 1.70 mg/dL (1.7-2.3) 06/21/22 05:17 Total Bilirubin 0.40 mg/dL (0.1-1.2) 06/20/22 04:06 Direct Bilirubin < 0.2 mg/dL (0-0.2) 06/20/22 04:06 AST 24 units/L (5-40) 06/20/22 04:06 ALT 15 units/L (7-56) 06/20/22 04:06 Alkaline Phosphatase 100 units/L (35-129) 06/20/22 04:06 Total Creatine Kinase 93 units/L (55-170) 06/18/22 14:59 Total Creatine Kinase 98 units/L (55-170) 06/18/22 14:59 Troponin T < 0.010 ng/mL (0.00-0.029) 06/18/22 14:59 C-Reactive Protein < 0.30 mg/dL (0.00-1.30) 06/21/22 05:17 NT-Pro-B Natriuret Pep 304.5 pg/mL (0-900) 06/18/22 14:59 Total Protein 5.7 g/dL (6.3-8.2) L 06/20/22 04:06 Albumin 3.4 g/dL (3.9-5) L 06/20/22 04:06 Albumin/Globulin Ratio 1.5 % 06/20/22 04:06 Triglycerides 192 mg/dL (2-149) H 06/20/22 04:06 Amylase 109 units/L (27-131) 06/21/22 05:17 Lipase 41 units/L (13-60) 06/21/22 05:17 Urine Color Yellow (Yellow) 06/18/22 15:43 Urine Turbidity Clear (Clear) 06/18/22 15:43 Urine pH 5.0 (5.0-7.0) 06/18/22 15:43 Ur Specific [place] 1.010 (1.003-1.030) 06/18/22 15:43 Urine Protein <15 mg/dl mg/dL (Negative) 06/18/22 15:43 Urine Glucose (UA) Negative mg/dL (Negative) 06/18/22 15:43 Urine Ketones 1 mg/dL (Negative) 06/18/22 15:43 Urine Blood Negative (Negative) 06/18/22 15:43 Urine Nitrite Negative (Negative) 06/18/22 15:43 Ur Reducing Substances Not Reportable 06/18/22 15:43 Urine Bilirubin Negative (Negative) 06/18/22 15:43 Urine Ictotest Not Reportable 06/18/22 15:43 Urine Urobilinogen 2.0 mg/dL (<2.0) 06/18/22 15:43 Ur Leukocyte Esterase 1.0 (Negative) 06/18/22 15:43 Urine WBC (Auto) 48.0 /HPF (0.0-6.0) H 06/18/22 15:43 Urine RBC (Auto) 14.0 /HPF (0.0-6.0) 06/18/22 15:43 U Epithel Cells (Auto) 6.0 /HPF (0-13.0) 06/18/22 15:43 Urine Bacteria (Auto) 1+ /HPF (Negative) 06/18/22 15:43 Urine Mucus Few /HPF 06/18/22 15:43 Urine Yeast (Budding) 2+ /HPF 06/18/22 15:43 Salicylates < 0.3 mg/dL (2.8-20.0) L 06/18/22 14:59 Urine Opiates Screen Presumptive negative 06/18/22 15:43 Urine Methadone Screen Presumptive negative 06/18/22 15:43 Acetaminophen 5.0 ug/mL (10.0-30.0) L 06/18/22 14:59 Ur Barbiturates Screen Presumptive negative 06/18/22 15:43 Ur Phencyclidine Scrn Presumptive negative 06/18/22 15:43 Ur Amphetamines Screen Presumptive negative 06/18/22 15:43 U Benzodiazepines Scrn Presumptive negative 06/18/22 15:43 Urine Cocaine Screen Presumptive negative 06/18/22 15:43 U Marijuana (THC) Screen Presumptive negative 06/18/22 15:43 Drugs of Abuse Note Disclamer 06/18/22 15:43 Plasma/Serum Alcohol < 0.01 % (0-0.07) 06/18/22 14:59 Hou/IV: Voiding Method Urinal Active Medications - Current Medications Current Medications: Generic Name Dose Route Start Last Admin Trade Name Freq PRN Reason Stop Dose Admin Albuterol 2.5 mg 06/18/22 17:08 Albuterol 2.5 Mg/3 Ml Nebu IH Q3HRT PRN Shortness Of Breath Amitriptyline HCl 75 mg 06/20/22 10:00 06/20/22 09:38 Amitriptyline 25 Mg Tab PO 75 mg QDAY LUKAS Administration Aspirin 325 mg 06/20/22 10:00 06/20/22 09:38 Aspirin 325 Mg Tab PO 325 mg QDAY LUKAS Administration Dextrose 50 ml 06/19/22 14:58 Dextrose 50% In Water (25gm) 50 Ml Syringe IV Q30MIN PRN Hypoglycemia Protocol Famotidine 20 mg 06/20/22 10:00 06/20/22 09:38 Famotidine 20 Mg Tab PO 20 mg QDAY LUKAS Administration Hydromorphone HCl 0.5 mg 06/19/22 17:09 06/21/22 03:20 Hydromorphone 0.5 Mg/0.5 Ml Inj IV 0.5 mg Q4HR PRN Administration Pain , Severe (7-10) Lactated Ringer's 1,000 mls @ 100 mls/hr 06/19/22 15:00 06/20/22 13:20 Lactated Ringers IV 100 mls/hr DIRECT LUKAS Administration Insulin Glargine 15 units 06/20/22 22:00 06/20/22 21:33 Insulin Glargine 100 Units/Ml SUB-Q 15 units QHS LUKAS Administration Insulin Human Regular 0 units 06/19/22 16:30 06/20/22 21:33 Insulin Regular, Human 100 Units/1 Ml SUB-Q 2 units ACHS LUKAS Administration Protocol Levothyroxine Sodium 40 mcg 06/20/22 06:00 Levothyroxine 50 Mcg Tab PO DAILY@0600 LUKAS Lisinopril 5 mg 06/20/22 10:00 06/20/22 09:38 Lisinopril 5 Mg Tab PO 5 mg QDAY LUKAS Administration Ondansetron HCl 4 mg 06/19/22 14:59 Ondansetron 4 Mg/2 Ml Inj IV Q6H PRN Nausea And Vomiting Quetiapine Fumarate 50 mg 06/19/22 22:00 06/20/22 21:34 Quetiapine 25 Mg Tab PO 50 mg QHS LUKAS Administration Sodium Chloride 10 ml 06/18/22 22:00 06/20/22 21:33 Sodium Chloride 0.9% 10 Ml Flush Syringe IV 10 ml BID LKUAS Administration Sodium Chloride 10 ml 06/18/22 17:08 Sodium Chloride 0.9% 10 Ml Flush Syringe IV PRN PRN LINE FLUSH Nutrition/Malnutrition Assess - Dietary Evaluation Nutrition/Malnutrition Findings: Nutrition Notes Start: 06/19/22 15:06 Freq: Status: Active Protocol: Document 06/19/22 15:06 LILIBETH (Rec: 06/19/22 15:24 LILIBETH [id number]) Nutrition Notes 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 Current Diet Clear Liquids Diet (from D ). Labs/Tests 06/19: Na 146, Cl 111.0, Glu 132. Pertinent Medications 06/19: Nutritionally unremarkable. 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 Pt will have the first meald at [employer] tonight, currently still on NPO., will assess at F/U. Pt is on Room Air, O2 saturation @ 100%, according to Physical Assessment History notes. Pt complains of nausea and abdominal pain, according to Physical Assessment History notes. Pt shows no signs of concern for risk of malnutrition at the time, according to Physical Assessment History notes. Percent of energy/protein needs met: Prescribed Clear Liquids Diet provides for energy/protein needs (590 Kcal/16 g) during LOS Burn Absent Trauma Absent GI Symptoms Nausea Food Allergy No Skin Integrity/Comment Assessment WNL. 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 Is patient on ventilator? No Is Patient Ambulatory and/or Out of Bed Yes REE-(Eugene-St. Jeor-ambulatory/OOB) [ 1915.394 [id number]] Calculation Used for Recommendations Eugene-St Jeor Additional Notes Protein: 0.8-1.2 g/Kg ABW; 52- 78 g/day. Fluids: 1 ml/Kcal, or as per MD. Nutrition Intervention Change Diet Order: Advance to Clear Liquids Diet, eventually, advance to Full Liquids Diet as tolerated. Follow-Up By: 06/26/22 Additional Comments Start monitoring food tolerance, %PO intake of meals , and BM.
--- NOTE | 2022-06-20 14:34 | Magnetic Resonance Report ---
MR abdomen MRCP INDICATION / CLINICAL INFORMATION: Acute Pancreatitis. TECHNIQUE: Multiplanar, multisequence MR images were obtained. CONTRAST: None COMPARISON: CT abdomen and pelvis 06/19/2022 FINDINGS: Trace bilateral pleural effusions without obvious significant basilar consolidation. Minima l ascites near the liver. Liver is enlarged and has a length of 20.8 cm but no focal lesions are seen . No lesions seen of the spleen, adrenals, or right kidney. Small anterior left mid renal lesion bradford uring 9 mm corresponds to a small hypodensity on CT and probably is a small cysts though is not well characterized. No obvious lymphadenopathy. No bowel obstruction. Significant artifact is seen in the left lower quadrant and upper pelvis from left iliac surgical change. Edema is seen throughout the pancreas and in the peripancreatic tissues, particularly near the tail o f the pancreas. No defined fluid collection is seen however. No significant pancreatic ductal dilatat ion is obvious. No defined pancreatic mass is seen. No biliary dilatation is noted. No obvious biliar y filling defects are seen. Gallbladder has been removed. IMPRESSION: 1. Evidence of acute pancreatitis without obvious complication 2. Minimal ascites 3. Hepatomegaly Signer Name: Iftikhar Mary MD Signed: 06/20/2022 2:29 PM Workstation Name: [id number]
[2022-06-20] MEDS: QUEtiapine 25 MG TAB PO SCH (21:34)
[2022-06-20] MEDS ORDERED: INSULIN GLARGINE 100 UNITS/ML SUB-Q SCH (22:00)
[2022-06-21] MEDS: HYDROmorphone 0.5 MG/0.5 ML INJ IV PRN ×2 (03:20→08:22)
[2022-06-21 05:48] LABS: Hematocrit 31.1 % (35.5-45.6); Hemoglobin 10.6 gm/dl (11.8-15.2); Mean Corpuscular HGB Conc 34 % (32-34); Mean Corpuscular Volume 94 fl (84-94); Platelet Count 178 K/mm3 (140-440); Red Blood Count 3.29 M/mm3 (3.65-5.03); Red Cell Distribution Width 15.2 % (13.2-15.2)
[2022-06-21 06:06] LABS: BUN/Creatinine Ratio 4; Blood Urea Nitrogen 4 mg/dL (9-20); Calcium 8.5 mg/dL (8.4-10.2); Hemolysis Index 4
[2022-06-21 06:23] LABS: C-Reactive Protein < 0.30 mg/dL (0.00-1.30)
[2022-06-21 06:31] VITALS: BP 101/66
[2022-06-21] MEDS: LACTATED RINGERS 1,000 ML IV SCH (08:13)
--- NOTE | 2022-06-21 09:19 | Discharge Summary ---
Providers - Providers Date of Admission: 06/18/22 17:08 Attending physician: URIEL BRANDON MD 06/19/22 10:19 Consult to Physician [CONS] Routine Comment: noted/ dr. marianna sarmiento/miguel gauthier Consulting Provider: NAOMI CALDERON Physician Instructions: Reason For Exam: CCM. DKA Primary care physician: FRUIT PITTER Hospitalization Reason for admission: Abdominal pain Condition: Stable Hospital course: This is a 57-year-old male with known past medical history of HTN, IDDM, and hypothyroidism admitted for DKA Hospital Course to Date: 06/19: Patient remains on DKA protocol, anion gap closed this am. Patient still complaining of severe persistent abdominal pain. Per patient, patient has been constant since admit with no improvement. Orders placed for CT abd/pelvis. Depends on CT result will most likely transition to SubQ insulin today. Continue IVF resuscitation and insulin gtt per DKA protocol. [facility] is also following. 06/20: CT abd/Pelvis revealed acute pancreatitis. Patient denied any alcohol abuse, amylase and lipase elevated. Unclear etiology. Will get a MRCP for further eval. Patient is tolerating clear liquid diet, continue IVF hydration and PRN analgesia for pain management. D/W [facility] patient is stable for transfer to the floor. 06/21: Patient seen and examined this morning doing well has asked for change to regular diet despite my explaining how advancing too quickly with food will cause his abdominal pain he is unrelenting. He says that his pain is improved there is more of a sore on both sides. He rates it a 2/10 in intensity. He was given a regular diet and tolerated it today. I did educate him about pancreatitis and what causes him his MRCP was unremarkable for any retained stone he had a history of cholecystectomy 4 years ago according to him. Clinically stable for discharge he denies alcohol use although he states that he drank a wine cooler 2 weeks prior to this incident of giving him counseling for 15 minutes about importance to quit using any alcohol at this time. Blood sugars better controlled diabetic education provided his clinical stable for this. Assessment and Plan #Insulin Dependent Diabetes Mellitus(IDDM) #S/p DKA (Diabetic Ketoacidosis) #Anion Gap Metabolic Acidosis-resolved - Presented with high BG, nausea, and abdominal pain - s/p DKA protocol was initiated - HgbA1C 10.7 - Transitioned to subQ insulin overnight - Continue SSI and Lantus Qhs - Monitor and replace electrolytes as needed - [facility] also on consult #Persistent Abdominal Pain #Acute Pancreatitis - Unclear etiology - Per patient, abdominal pain is unchanged since admit - Patient describe pain as persistent, cramp-like, diffuse pain. Abdomen is soft but tender to touch. Patient denied any N/V, no diarrhea or bloating. - CT Abd/Pelvis reviewed suggesting acute pancreatitis - Elevated Lipase and amylase - MRCP ordered - PRN Analgesia for pain control - PRN antiemetic for N/V - Continue current IVF resuscitation - Tolerating clear liquid diet #Acute Kidney Injury(MARÍA) most like Vasomotor Nephropathy #Volume Depletion #Metabolic Acidosis-resolved - Baseline renal function is unknown - Presented with Scr. as high as 1.8, most likely 2/2 to DKA/hypovolemia/Dehydration - Renal function normalized post IVF hydration - Continue IV fluid hydration - Strict intake and output - Avoid nephrotoxic medications - Monitor and replace electrolytes as needed - Trend BMP #Small Lytic Foci - CTAP also revealed several small lytic foci noted in the iliac bones. - Follow up outpatient for a nuclear medicine bone scan for further eval. #Hypertension - BP stable - Home meds resumed - Continue blood pressure monitor per protocol - Maintain SBP greater than 160 #Hypothyroidism - resume home Synthroid #GI/DVT Prophylaxis - PPI- Pepcid - SCD to bilateral lower extremities while in bed Disposition: 01 HOME / SELF CARE / HOMELESS Final Discharge Diagnosis (Prints w/discharge instructions): Acute pancreatitis. DKA Time spent for discharge: 35-minute Core Measure Documentation - Palliative Care Palliative Care/ Comfort Measures: Not Applicable - Core Measures Any of the following diagnoses?: none Exam - Physical Exam Narrative exam: VITAL SIGNS: Reviewed. GENERAL: The patient appears normally developed, Vital signs as documented. HEAD: No signs of head trauma. EYES: Pupils are equal. Extraocular motions intact. EARS: Hearing grossly intact. MOUTH: Oropharynx is normal. NECK: No adenopathy, no JVD. CHEST: Chest with clear breath sounds bilaterally. No wheezes, rales, or rhonchi. CARDIAC: Regular rate and rhythm. S1 and S2, without murmurs, gallops, or rubs. VASCULAR: No Edema. Peripheral pulses normal and equal in all extremities. ABDOMEN: Soft, no guarding but mildly sore on the side and non distended. No rebound or guarding, and no masses palpated. Bowel Sounds normal. MUSCULOSKELETAL: Good range of motion of all major joints. Extremities without clubbing, cyanosis or edema. NEUROLOGIC EXAM: Alert and oriented x 3 No focal sensory or strength deficits. Speech normal. Follows commands. PSYCHIATRIC: Mood normal. SKIN: detail exam as documented in skin assessment - Constitutional Vitals: Temp Pulse Resp BP Pulse Ox 98.6 F 80 18 101/66 98 06/21/22 05:11 06/21/22 05:11 06/21/22 05:11 06/21/22 05:11 06/21/22 05:11 Plan Activity: advance as tolerated, fall precautions Diet: diabetic Special Instructions: record daily weights, record daily BP diary, record blood sugar diary Follow up with: PRIMARY CARE, [Primary Care Provider] - 7 Days Prescriptions: Insulin Degludec [Tresiba] 45 unit SUB-Q QHS #1 vial Insulin Glulisine [Apidra] 15 units SUB-Q WMHS #10 ml Famotidine [Pepcid] 20 mg PO QDAY #30 tablet traMADoL [Ultram] 50 mg PO Q6HR PRN #14 tablet PRN Reason: Pain
[2022-06-21] MEDS: AMITRIPTYLINE 25 MG TAB PO SCH (09:34)
[2022-06-21] MEDS: ASPIRIN 325 MG TAB PO SCH (09:34)
[2022-06-21] MEDS: FAMOTIDINE 20 MG TAB PO SCH (09:34)
[2022-06-21] MEDS: LISINOPRIL 5 MG TAB PO SCH (09:35)
[2022-06-21] MEDS: INSULIN REGULAR, HUMAN 100 UNITS/1 ML SUB-Q SCH ×3 (09:35→12:30)
--- NOTE | 2022-06-21 13:05 | Progress Note ---
Assessment and Plan 57 YO Male with DM, HTN presents ED for evaluation. Patient reported "my blood sugar is high". Patient stated that he has experienced nausea, abdominal discomfort, diminished oral intake over the past 1 day with persistent symptoms over the same timeframe. Patient checks his blood glucose and found that it was above 500. EMS was notified and upon arrival the patient was found to be in distress and subsequent transported to [facility] for further care and evaluation of the aforementioned symptoms. The patient was seen and evaluated in the emergency department. All lab and imaging studies reviewed. Patient found to have diabetic ketoacidosis, metabolic acidosis, acute kidney injury, volume depletion as well as malnutrition. Patient admitted to ICU due to increased risk of worsening symptoms and for medical stabilization. Patient initiated on DKA protocol. Patient denies fever, chills, chest pain, palpitation, productive cough, skin rash and recent contact, no exposure to COVID-19. Patient has history of smoking 1/2 a pack a day x 10 years. Counseled to stop smoking. Denies alcohol or drug abuse. 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 Allergic to Tut[place]iler and Tylenol. Patient alert, awake and on room air. O2 saturation 99%. No acute respiratory distress. Patient afebrile. No leukocytosis. Blood pressure 101/66, Pulse 80, respirations 18. Chest xray 06/18/22 reported No acute abnormality of the chest. Patient is on albuterol inhaler, Famotidine. - Patient Problems (1) Acidosis, metabolic Status: Acute Plan to address problem: Improving . To days anion gap is 14. (2) Volume depletion Status: Acute Plan to address problem: Improved. To days bun 4. creatinine 1.0. (3) Malnutrition Status: Acute Qualifiers: Protein-calorie malnutrition severity: mild Plan to address problem: Recommend nutritional consultation. (4) Tobacco use Status: Acute Plan to address problem: Counseled to stop smoking. Recommend PFTs as out patient. Subjective Date of service: 06/21/22 Principal diagnosis: DKA; Metabolic Acidosis; IVVD; MARÍA; Malnutrition Interval history: 57 YO Male with DM, HTN presents ED for evaluation. Patient reported "my blood sugar is high". Patient stated that he has experienced nausea, abdominal discomfort, diminished oral intake over the past 1 day with persistent symptoms over the same timeframe. Patient checks his blood glucose and found that it was above 500. EMS was notified and upon arrival the patient was found to be in distress and subsequent transported to [facility] for further care and evaluation of the aforementioned symptoms. The patient was seen and evaluated in the emergency department. All lab and imaging studies reviewed. Patient found to have diabetic ketoacidosis, metabolic acidosis, acute kidney injury, volume depletion as well as malnutrition. Patient admitted to ICU due to increased risk of worsening symptoms and for medical stabilization. Patient initiated on DKA protocol. Patient denies fever, chills, chest pain, palpitation, productive cough, skin rash and recent contact, no exposure to COVID-19. Patient has history of smoking 1/2 a pack a day x 10 years. Counseled to stop smoking. Denies alcohol or drug abuse. 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 Allergic to [place] and Tylenol. Patient alert, awake and on room air. O2 saturation 99%. No acute respiratory distress. Patient afebrile. No leukocytosis. Blood pressure 101/66, Pulse 80, respirations 18. Chest xray 06/18/22 reported No acute abnormality of the chest. Patient is on albuterol inhaler, Famotidine. Objective Vital Signs - 12hr 06/21/22 06/21/22 06/21/22 03:00 05:11 10:00 Temperature 98.6 F Pulse Rate 78 80 Respiratory 18 Rate Blood Pressure 101/66 O2 Sat by Pulse 98 99 Oximetry Constitutional: no acute distress, alert Eyes: non-icteric ENT: oropharynx moist Neck: supple, no lymphadenopathy, no JVD Effort: normal Ascultation: Bilateral: clear Percussion: Bilateral: not dull Cardiovascular: regular rate and rhythm Gastrointestinal: normoactive bowel sounds, soft, tender (epigastric), non- distended Integumentary: normal Extremities: no cyanosis, no edema, pulses normal, no ischemia or petechiae Neurologic: non-focal exam, pupils equal and round, CN II-XII normal, motor strength normal and Psychiatric: mood appropriate, affect normal CBC and BMP: 06/21/22 05:17 06/21/22 05:17 ABG, PT/INR, D-dimer: ABG ABG pH 7.189 pH Units (7.350-7.450) L* 06/18/22 16:47 ABG pCO2 25.3 mm Hg 06/18/22 16:47 ABG pO2 125.4 mm Hg (80.0-90.0) H 06/18/22 16:47 ABG O2 Saturation 98.1 % (95.0-99.0) 06/18/22 16:47 PT/INR, D-dimer PT 13.9 Sec. (12.2-14.9) 06/18/22 14:59 INR 0.97 (0.87-1.13) 06/18/22 14:59 Abnormal lab findings: Abnormal Labs 06/18/22 06/18/22 06/18/22 14:59 14:59 14:59 WBC RBC Hgb Hct MCV RDW Lymph # (Auto) Seg Neutrophils % ABG pH ABG pO2 ABG HCO3 ABG Base Excess ABG Hemoglobin Sodium 132 L Potassium 6.7 H* Chloride 92.0 L Carbon Dioxide 13 L BUN 22 H Creatinine 1.6 H Glucose 738 H* POC Glucose Hemoglobin A1c Lactic Acid 2.40 H* Phosphorus Alkaline Phosphatase 135 H Total Protein Albumin Triglycerides Amylase Lipase Urine WBC (Auto) Salicylates < 0.3 L Acetaminophen 06/18/22 06/18/22 06/18/22 14:59 15:26 15:40 WBC RBC Hgb Hct MCV 98 H RDW 15.3 H Lymph # (Auto) 1.1 L Seg Neutrophils % 73.0 H ABG pH ABG pO2 ABG HCO3 ABG Base Excess ABG Hemoglobin Sodium Potassium Chloride Carbon Dioxide BUN Creatinine Glucose POC Glucose > 600 H Hemoglobin A1c Lactic Acid Phosphorus Alkaline Phosphatase Total Protein Albumin Triglycerides Amylase Lipase Urine WBC (Auto) Salicylates Acetaminophen 5.0 L 06/18/22 06/18/22 06/18/22 15:43 16:47 16:52 WBC RBC Hgb Hct MCV RDW Lymph # (Auto) Seg Neutrophils % ABG pH 7.189 L* ABG pO2 125.4 H ABG HCO3 9.4 L ABG Base Excess -17.2 L ABG Hemoglobin 12.1 L Sodium Potassium Chloride Carbon Dioxide BUN Creatinine Glucose POC Glucose > 600 H Hemoglobin A1c Lactic Acid Phosphorus Alkaline Phosphatase Total Protein Albumin Triglycerides Amylase Lipase Urine WBC (Auto) 48.0 H Salicylates Acetaminophen 06/18/22 06/18/22 06/18/22 17:52 17:59 17:59 WBC RBC Hgb Hct MCV RDW Lymph # (Auto) Seg Neutrophils % ABG pH ABG pO2 ABG HCO3 ABG Base Excess ABG Hemoglobin Sodium 133 L Potassium 6.9 H* Chloride 94.3 L Carbon Dioxide 10 L BUN 26 H Creatinine 1.8 H Glucose 792 H* POC Glucose > 600 H Hemoglobin A1c Lactic Acid Phosphorus 4.70 H Alkaline Phosphatase Total Protein Albumin Triglycerides Amylase Lipase Urine WBC (Auto) Salicylates Acetaminophen 06/18/22 06/18/22 06/18/22 21:56 22:32 22:32 WBC RBC Hgb Hct MCV RDW Lymph # (Auto) Seg Neutrophils % ABG pH ABG pO2 ABG HCO3 ABG Base Excess ABG Hemoglobin Sodium 147 H D Potassium Chloride 108.1 H Carbon Dioxide 17 L D BUN 24 H Creatinine 1.7 H Glucose 126 H POC Glucose 123 H Hemoglobin A1c Lactic Acid 5.30 H* Phosphorus Alkaline Phosphatase Total Protein Albumin Triglycerides Amylase Lipase Urine WBC (Auto) Salicylates Acetaminophen 06/19/22 06/19/22 06/19/22 00:01 00:49 00:49 WBC RBC Hgb Hct MCV RDW Lymph # (Auto) Seg Neutrophils % ABG pH ABG pO2 ABG HCO3 ABG Base Excess ABG Hemoglobin Sodium 146 H Potassium Chloride 107.6 H Carbon Dioxide 20 L BUN 22 H Creatinine 1.6 H Glucose 169 H POC Glucose 121 H Hemoglobin A1c Lactic Acid 2.30 H* Phosphorus Alkaline Phosphatase Total Protein Albumin Triglycerides Amylase Lipase Urine WBC (Auto) Salicylates Acetaminophen 06/19/22 06/19/22 06/19/22 00:59 02:02 03:01 WBC RBC Hgb Hct MCV RDW Lymph # (Auto) Seg Neutrophils % ABG pH ABG pO2 ABG HCO3 ABG Base Excess ABG Hemoglobin Sodium Potassium Chloride Carbon Dioxide BUN Creatinine Glucose POC Glucose 159 H 119 H 113 H Hemoglobin A1c Lactic Acid Phosphorus Alkaline Phosphatase Total Protein Albumin Triglycerides Amylase Lipase Urine WBC (Auto) Salicylates Acetaminophen 06/19/22 06/19/22 06/19/22 04:46 05:03 06:03 WBC RBC Hgb Hct MCV RDW Lymph # (Auto) Seg Neutrophils % ABG pH ABG pO2 ABG HCO3 ABG Base Excess ABG Hemoglobin Sodium 146 H Potassium Chloride 110.8 H Carbon Dioxide 21 L BUN Creatinine 1.4 H Glucose 151 H POC Glucose 135 H 166 H Hemoglobin A1c Lactic Acid Phosphorus Alkaline Phosphatase Total Protein Albumin Triglycerides Amylase Lipase Urine WBC (Auto) Salicylates Acetaminophen 06/19/22 06/19/22 06/19/22 06:57 08:32 09:21 WBC RBC Hgb Hct MCV RDW Lymph # (Auto) Seg Neutrophils % ABG pH ABG pO2 ABG HCO3 ABG Base Excess ABG Hemoglobin Sodium 146 H Potassium Chloride 111.0 H Carbon Dioxide BUN Creatinine Glucose 132 H POC Glucose 158 H 117 H Hemoglobin A1c Lactic Acid Phosphorus Alkaline Phosphatase Total Protein Albumin Triglycerides Amylase Lipase Urine WBC (Auto) Salicylates Acetaminophen 06/19/22 06/19/22 06/19/22 09:21 09:35 10:42 WBC RBC Hgb Hct MCV RDW Lymph # (Auto) Seg Neutrophils % ABG pH ABG pO2 ABG HCO3 ABG Base Excess ABG Hemoglobin Sodium Potassium Chloride Carbon Dioxide BUN Creatinine Glucose POC Glucose 121 H 124 H Hemoglobin A1c Lactic Acid 3.20 H* Phosphorus Alkaline Phosphatase Total Protein Albumin Triglycerides Amylase Lipase Urine WBC (Auto) Salicylates Acetaminophen 06/19/22 06/19/22 06/19/22 14:58 15:47 16:24 WBC RBC Hgb Hct MCV RDW Lymph # (Auto) Seg Neutrophils % ABG pH ABG pO2 ABG HCO3 ABG Base Excess ABG Hemoglobin Sodium Potassium Chloride 110.3 H Carbon Dioxide 21 L BUN Creatinine Glucose 164 H POC Glucose 125 H 163 H Hemoglobin A1c Lactic Acid Phosphorus Alkaline Phosphatase Total Protein Albumin Triglycerides Amylase Lipase Urine WBC (Auto) Salicylates Acetaminophen 06/19/22 06/20/22 06/20/22 21:43 04:06 04:06 WBC 3.9 L RBC 3.42 L Hgb 10.8 L Hct 32.1 L D MCV RDW 15.5 H Lymph # (Auto) Seg Neutrophils % ABG pH ABG pO2 ABG HCO3 ABG Base Excess ABG Hemoglobin Sodium Potassium Chloride 110.3 H Carbon Dioxide BUN 8 L Creatinine Glucose POC Glucose 107 H Hemoglobin A1c Lactic Acid Phosphorus Alkaline Phosphatase Total Protein 5.7 L Albumin 3.4 L Triglycerides 192 H Amylase 180 H Lipase 249 H Urine WBC (Auto) Salicylates Acetaminophen 06/20/22 06/20/22 06/20/22 04:06 07:19 08:04 WBC RBC Hgb Hct MCV RDW Lymph # (Auto) Seg Neutrophils % ABG pH ABG pO2 ABG HCO3 ABG Base Excess ABG Hemoglobin Sodium Potassium Chloride Carbon Dioxide BUN Creatinine Glucose POC Glucose 133 H 111 H Hemoglobin A1c 10.7 H Lactic Acid Phosphorus Alkaline Phosphatase Total Protein Albumin Triglycerides Amylase Lipase Urine WBC (Auto) Salicylates Acetaminophen 06/20/22 06/20/22 06/21/22 17:58 21:23 05:17 WBC 3.1 L RBC 3.29 L Hgb 10.6 L Hct 31.1 L MCV RDW Lymph # (Auto) Seg Neutrophils % ABG pH ABG pO2 ABG HCO3 ABG Base Excess ABG Hemoglobin Sodium Potassium Chloride Carbon Dioxide BUN Creatinine Glucose POC Glucose 119 H 165 H Hemoglobin A1c Lactic Acid Phosphorus Alkaline Phosphatase Total Protein Albumin Triglycerides Amylase Lipase Urine WBC (Auto) Salicylates Acetaminophen 06/21/22 06/21/22 06/21/22 05:17 07:39 08:30 WBC RBC Hgb Hct MCV RDW Lymph # (Auto) Seg Neutrophils % ABG pH ABG pO2 ABG HCO3 ABG Base Excess ABG Hemoglobin Sodium Potassium 3.5 L Chloride Carbon Dioxide BUN 4 L Creatinine Glucose 43 L POC Glucose 38 L 35 L Hemoglobin A1c Lactic Acid Phosphorus Alkaline Phosphatase Total Protein Albumin Triglycerides Amylase Lipase Urine WBC (Auto) Salicylates Acetaminophen 06/21/22 11:26 WBC RBC Hgb Hct MCV RDW Lymph # (Auto) Seg Neutrophils % ABG pH ABG pO2 ABG HCO3 ABG Base Excess ABG Hemoglobin Sodium Potassium Chloride Carbon Dioxide BUN Creatinine Glucose POC Glucose 68 L Hemoglobin A1c Lactic Acid Phosphorus Alkaline Phosphatase Total Protein Albumin Triglycerides Amylase Lipase Urine WBC (Auto) Salicylates Acetaminophen Chest x-ray: report reviewed, image reviewed Additional Studies: CHEST 1 VIEW 06/18/2022 3:15 PM INDICATION / CLINICAL INFORMATION: Altered Mental Status. COMPARISON: None available. FINDINGS: SUPPORT DEVICES: None. HEART / MEDIASTINUM: No significant abnormality. LUNGS / PLEURA: No significant pulmonary abnormality. No significant pleural effusion. No pneumothorax. ADDITIONAL FINDINGS: No significant additional findings. IMPRESSION: 1. No acute abnormality of the chest. Allied health notes reviewed: nursing
[2022-06-22] MEDS ORDERED: LEVOTHYROXINE 50 MCG TAB PO SCH (06:00)
== END 2022-06-21 14:40 | disposition home or self-care (01) | DRG 637 ==
LOC: ED 13:28 → CC1 17:08 → 3A 06-20 16:07
PROVIDERS: ADMIT Internal Medicine; ATTEND Internal Medicine
PROC: 4A033R1 Measurement of Arterial Saturation, Peripheral, Percutaneous Approach (ICD-10-PCS; principal; 2022-06-18)
DX: E10.10 Type 1 diabetes mellitus with ketoacidosis without coma (principal); K85.90 Acute pancreatitis without necrosis or infection, unspecified; N17.0 Acute kidney failure with tubular necrosis; E44.1 Mild protein-calorie malnutrition; E86.9 Volume depletion, unspecified; Z68.21 Body mass index [BMI] 21.0-21.9, adult; I10 Essential (primary) hypertension; E03.9 Hypothyroidism, unspecified; N39.0 Urinary tract infection, site not specified; Z82.49 Family history of ischemic heart disease and other diseases of the circulatory system; Z88.8 Allergy status to other drugs, medicaments and biological substances; Z83.3 Family history of diabetes mellitus; Z91.018 Allergy to other foods; Z79.4 Long term (current) use of insulin
CPT/HCPCS: 36415; 71045; 74176; 74181; 80048; 80053; 80307; 80320; 81001; 82010; 82140; 82150; 82248; 82550; 82803; 82962; 83036; 83690; 83735; 83880; 84100; 84478; 84484; 85025; 85027; 85610; 86140; 87076; 87086; 87186; 99406; G0378; J3480; J3490; J7070; Q9967; G0480; J1170; J1815; J2765; J3010; J7030; J7040; J7120